=== PATIENT | female | born 1990 | race Caucasian/White ===

== ENCOUNTER 2016-10-18 21:55 | Emergency (ER) | payer OTHER ==
--- NOTE | 2016-10-19 02:03 | ED ORDER SUMMARY ---
..... Patient: ARTHUR LAWRENCE OrderSheet [facility] VisitID: [id number] [address] [place] [address] 26y, F Registration Date/Time: 10/18/2016 ORDER SHEET Weight: 57.1 kg (stated) Allergies: Wellbutrin, Percocet, Hydrocodone GENERAL ORDERS: US Pelvic Complete w Transvag Urgent (23:37 10/18/2016 Jane Richard) (Ack 23:40 [facility] Collections Professional) (Cancelled: Other23:59 [facility] Professional) US OB 1st Trimester w Transvag (CHART) Urgent (23:59 10/18/2016 [facility] Professional written order Jane Richard) (Ack 0:01 [facility] Professional) (0:49 GUnger) CBC w Diff Urgent (00:17 10/19/2016 Jane Richard) (Ack 0:29 [facility]) (0:57 JQuivey R.N.) CMP Urgent (00:17 10/19/2016 Jane Richard) (Ack 0:29 [facility] Professional) (0:57 JQuivey R.N.) UA-Culture if indicated Urgent (00:17 10/19/2016 Jane Richard) (Ack 0:29 [facility] Professional) (0:57 JQuivey R.N.) Serum Quantitative Urgent (00:17 10/19/2016 Jane Richard) (Ack 0:29 [facility] Professional) (0:57 JQuivey R.N.) MEDICATION ORDERS: Phenergan IV 25 mg (HIGH ALERT MEDICATION, NOW) (00:17 10/19/2016 Jane Richard) (Ack 0:26 JQuivey R.N.) (0:58 JQuivey R.N.) Keflex PO 500 mg (NOW) (01:56 10/19/2016 Jane Richard) (Ack 2:06 JQuivey R.N.) (2:15 CFalkner R.N.) IV FLUIDS: IV NS : initial bolus none -, then 1000 mL/hr (NOW) (23:25 10/18/2016 JQuivey R.N. per protocol) (23:26 JQuivey R.N.) IV NS : initial bolus 1000 mL (1000 mL/hr), then none - for X1 (NOW) (00:17 10/19/2016 Jane Richard) (Ack 0:26 JQuivey R.N.) (0:58 JQuivey R.N.) Benadryl IV 25 mg (NOW) (01:42 10/19/2016 Jane Richard) (Ack 1:43 JQuivey R.N.) (1:45 JQuivey R.N.) ORDER SHEET NOTES: [Electronically signed by Talha Kruger R.N. (02:52 10/19/2016)] [Electronically signed by Jim Abdalla Dr. (12:17 10/22/2016)] [Electronically locked/signed by Talha Kruger R.N. (02:52 10/19/2016)]
--- NOTE | 2016-10-19 02:03 | ED CLINICAL REPORT ---
Clinical Report - Physicians/Mid Levels [facility] [address] [place] [address] 10/18/2016 21:56 Patient: ARTHUR LAWRENCE Arrived- By private vehicle. Historian- patient. HISTORY OF PRESENT ILLNESS Chief Complaint: VOMITING. This started yesterday and is still present. It was abrupt in onset and has been constant but is not gone now. The patient has had nausea and vomiting. No diarrhea, black stools, bloody stools or abdominal pain. The illness is described as moderate. Similar symptoms previously: None. Recent medical care: Not recently seen/assessed. REVIEW OF SYSTEMS No fever, headache, chest pain, difficulty breathing or skin rash. All systems otherwise negative, except as recorded above. PAST HISTORY See nurses notes. SOCIAL HISTORY Former smoker. No alcohol use or drug use. Is a local resident. ADDITIONAL NOTES The nursing notes have been reviewed. PHYSICAL EXAM Vital Signs: 10/18/2016 22:53 BP: 116/75. HR: 82. RR: 16. O2 saturation: 99%. Temp: 97.6 F. Pain level now: 0/10. Blood pressure normal. Oxygen saturation normal. Appearance: Alert. Oriented X3. No acute distress. Eyes: Pupils equal, round and reactive to light. Eyes normal inspection. CVS: Normal heart rate and rhythm. Heart sounds normal. Pulses normal. Respiratory: No respiratory distress. Breath sounds normal. No rales, rhonchi or wheezes. Abdomen: Soft and nontender. Bowel sounds normal. No mass. (Negative Smith's. No tenderness at McBurney's. No rebound or guarding. Unable to palpate fundus). Skin: Skin warm and dry. Normal skin color. No rash. Normal skin turgor. Extremities: Extremities exhibit normal ROM. No lower extremity edema. LABS, X-RAYS, AND EKG Pelvic Sonogram: No free fluid. IUP with 6 weeks and 3 days. Study type: bedside transvaginal evaluation. The study was independently viewed by me and interpreted contemporaneously by me. Prior studies were not available for comparison. Laboratory Tests: UA-Culture if indicated: (OCHOA: 10/19/2016 01:00) ( Mscvd 10/19/2016 01:14) Final results Test Result Flag Units (Reference) URINE COLOR YELLOW URINE APPEARANCE CLEAR URINE GLUCOSE NEGATIVE (NEGATIVE) URINE BILIRUBIN NEGATIVE (NEGATIVE) URINE KETONE 3+ (NEGATIVE) URINE SPECIFIC GRAVITY >= 1.030 (1.010-1.030) URINE PH 6.0 (5.0-8.0) URINE PROTEIN 1+ (NEGATIVE) URINE UROBILINOGEN 0.2 EU/dL (0.2-1.0) URINE NITRITE NEGATIVE (NEGATIVE) URINE BLOOD TRACE-LYSED (NEGATIVE) URINE LEUK ESTERASE NEGATIVE (NEGATIVE) URINE RBC 0-1 rbc/hpf (0-1) URINE WBC 0-1 wbc/hpf (0-1) URINE EPITHELIAL CELLS 1-3 EPI/hpf (0-5) URINE BACTERIA MANY (4+) (NONE SEEN) URINE COMMENT CULTURE INDICATED URINE CULTURES ARE SET-UP BASED ON THE FOLLOWING CRITERIA:POSITIVE NITRITEPOSITIVE LEUKOCYTE ESTERASEGREATER THAN 10 WHITE BLOOD CELLSMODERATE (2+) OR GREATER BACTERIA CBC w Diff: (OCHOA: 10/19/2016 00:01) ( [facility] 10/19/2016 00:27) Final results Test Result Flag Units (Reference) WHITE BLOOD COUNT 9.0 K/uL (4.5-11.5) RED BLOOD COUNT 4.43 M/uL (4.00-5.20) HEMOGLOBIN 13.1 gm/dL (12.0-16.0) HEMATOCRIT 38.6 % (36.0-46.0) MEAN CELL VOLUME 87 fL (80-100) MEAN CORPUSCULAR HGB 30 pg (26-34) MEAN CORPUSCULAR HGB CONC 34 g/dL (31-37) RED CELL DISTRIBUTION WIDTH 12.8 % (11.6-14.8) PLATELET COUNT 228 K/uL (150-400) NEUTROPHIL % 79.3 H % (50-75) LYMPH % 15.9 L % (25-40) MONO % 4.1 % (3-14) EOSINOPHIL % 0.1 % (0-4) BASOPHIL % 0.6 % (0-2) CMP: (OCHOA: 10/19/2016 00:01) ( MsgRcvd 10/19/2016 00:55) Final results Test Result Flag Units (Reference) GLUCOSE 128 H mg/dL (70-110) BUN 11 mg/dL (7-18) CREATININE 0.8 mg/dL (0.6-1.3) Estimated GFR >60 mL/min Estimated GFR- >60 mL/min Note: Persistent reduction over 3 months in eGFR<60 mL/min/1.73 m2 defines CKD. Patients with eGFR values>=60 mL/min/1.73 m2 may also have CKD if evidence ofpersistent proteinuria. Additional information may be foundat www.kidney.org. SODIUM 138 mmol/L (136-145) POTASSIUM 3.7 mmol/L (3.5-5.1) CHLORIDE 103 mmol/L (98-107) CARBON DIOXIDE 21 mmol/L (21-32) CALCIUM 9.0 mg/dL (8.5-10.1) TOTAL PROTEIN 7.8 g/dL (6.4-8.2) ALBUMIN 4.5 g/dL (3.3-5.0) BILIRUBIN, TOTAL 1.0 mg/dL (0.0-1.0) ALKALINE PHOSPHATASE 41 L U/L (46-116) AST (SGOT) 13 L U/L (15-37) ALT (SGPT) 21 U/L (12-78) BETA HCG, QUANTITATIVE 71027 mIU/mL REFERENCE RANGE:Adult Males: <2 mIU/mLNon- Females: <6 mIU/mL Females:Approximate Approximate hCGGestational Age Range (mIU/mL) 0-1 week 0-501-2 weeks 40-3002-3 weeks 100-97249-0 weeks 500-23929-4 months 5,000-200,0002-3 months 10,000-100,0002nd trimester 3,000-50,0003rd trimester 1,000-50,000 Culture, Urine: (OCHOA: 10/19/2016 01:00) ( MsgRcvd 10/21/2016 10:59) Final results Test Result Flag Units (Reference) CULTURE, URINE DATE: 10/21/16 NO SIGNIFICANT ISOLATION: NO SIGNIFICANT ISOLATION PRELIM REPORT: FINAL REPORT . PROGRESS AND PROCEDURES Course of Care: the patient is a pleasant 26 year-old female presented for evaluation of nausea vomiting. At this time differential diagnosis includes hyperemesis gravidarum, urinary tract infection, gastroenteritis. Abdominal exam is nontender Did not the patient is surgical abdomen. Patient has not been evaluated with ultrasound at this point. We will perform ultrasound here to verify intrauterine as patient reports that she had had a home test that was positive. Patient is agreeable to the treatment and plan. workup does not show any acute abnormalities with patient's electrolytes or liver enzymes. Ultrasound results show patient with intrauterine . Had discussion with patient in regards nausea medication. Because of the concern at this point with Zofran that has not been proven with evidence,I discussion with patient and she would like to avoid this medication at this time. Patient is agreeable to other types of nausea medication. Patient reports feeling better after medication was provided here in the emergency department. No bleeding noted onpatient's history Per current guidelines, pelvic examination is not indicated. vital signs here in the emergency Department are unremarkable. Patient is nontoxic. Symptoms improved. Did not fill patient is to be admitted to the hospital require further emergency department evaluation. Patient to follow up with her primary care doctor and ANIMATOR forher current . I discussed the patient workup, diagnosis, home care, follow-up, and return precautions. All questions answered. The patient expressed understanding of these instructions and was agreeable to them. CLINICAL IMPRESSION 10/18/2016 22:53 BP: 116/75. HR: 82. RR: 16. O2 saturation: 99%. Temp: 97.6 F. Pain level now: 0/10. Blood pressure normal. Oxygen saturation normal. First trimester ; positive test in emergency department. Acute urinary tract infection with cystitis and hematuria. Mild hyperemesis gravidarum less than 21 weeks with dehydration (acute). INSTRUCTIONS Warnings: GENERAL WARNINGS: Return or contact your physician immediately if your condition worsens or changes unexpectedly, if not improving as expected, or if other problems arise. SPECIFICALLY, return if you develop pain, fever, vomiting, the inability to keep fluids down, blood in vomitus, blood in diarrhea, fainting, lightheadedness or vaginal bleeding. Your Current Medications: CONTINUE TAKING THE FOLLOWING MEDICATIONS: 1 Oral : Capsule 30-0.975-200 mg, 1 capsule qday. Zofran ODT Oral : 8mg, prn. Prescription Medications: Keflex 500 mg: take 1 capsule orally every 8 hours for 5 days. No refill. Substitution is permissible. (disp 15 caps) vitamins NatalCare Plus: Take 1 orally every day. Dispense thirty (30). No refils. Substitution is permissible. Diclegis (10mg/10mg) take on tab PO at night PRN nausea/vomiting. Disp 30 tabs. Substitution is allowed. Follow-up: Return to the emergency department as needed. Follow up with your doctor in three days. Reason for referral: recheck today's concerns. Summary of care provided to patient via paper. 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 Reason for referral: recheck today's concerns. Summary of care provided to patient via paper. Screening today revealed the patient's blood pressure to be in the normal range. The patient should follow up with a primary care provider for blood pressure management. Understanding of the discharge instructions verbalized by patient. (Electronically signed by Jim Abdalla Dr. 10/22/2016 12:17)
--- NOTE | 2016-10-19 02:03 | ED CLINICAL REPORT ---
Clinical Report - Physicians/Mid Levels [facility] [address] [place] [address] 10/18/2016 21:56 Patient: ARTHUR LAWRENCE Arrived- By private vehicle. Historian- patient. HISTORY OF PRESENT ILLNESS Chief Complaint: VOMITING. This started yesterday and is still present. It was abrupt in onset and has been constant but is not gone now. The patient has had nausea and vomiting. No diarrhea, black stools, bloody stools or abdominal pain. The illness is described as moderate. Similar symptoms previously: None. Recent medical care: Not recently seen/assessed. REVIEW OF SYSTEMS No fever, headache, chest pain, difficulty breathing or skin rash. All systems otherwise negative, except as recorded above. PAST HISTORY See nurses notes. SOCIAL HISTORY Former smoker. No alcohol use or drug use. Is a local resident. ADDITIONAL NOTES The nursing notes have been reviewed. PHYSICAL EXAM Vital Signs: 10/18/2016 22:53 BP: 116/75. HR: 82. RR: 16. O2 saturation: 99%. Temp: 97.6 F. Pain level now: 0/10. Blood pressure normal. Oxygen saturation normal. Appearance: Alert. Oriented X3. No acute distress. Eyes: Pupils equal, round and reactive to light. Eyes normal inspection. CVS: Normal heart rate and rhythm. Heart sounds normal. Pulses normal. Respiratory: No respiratory distress. Breath sounds normal. No rales, rhonchi or wheezes. Abdomen: Soft and nontender. Bowel sounds normal. No mass. (Negative Smith's. No tenderness at McBurney's. No rebound or guarding. Unable to palpate fundus). Skin: Skin warm and dry. Normal skin color. No rash. Normal skin turgor. Extremities: Extremities exhibit normal ROM. No lower extremity edema. LABS, X-RAYS, AND EKG Pelvic Sonogram: No free fluid. IUP with 6 weeks and 3 days. Study type: bedside transvaginal evaluation. The study was independently viewed by me and interpreted contemporaneously by me. Prior studies were not available for comparison. Laboratory Tests: UA-Culture if indicated: (OCHOA: 10/19/2016 01:00) ( Mscvd 10/19/2016 01:14) Final results Test Result Flag Units (Reference) URINE COLOR YELLOW URINE APPEARANCE CLEAR URINE GLUCOSE NEGATIVE (NEGATIVE) URINE BILIRUBIN NEGATIVE (NEGATIVE) URINE KETONE 3+ (NEGATIVE) URINE SPECIFIC GRAVITY >= 1.030 (1.010-1.030) URINE PH 6.0 (5.0-8.0) URINE PROTEIN 1+ (NEGATIVE) URINE UROBILINOGEN 0.2 EU/dL (0.2-1.0) URINE NITRITE NEGATIVE (NEGATIVE) URINE BLOOD TRACE-LYSED (NEGATIVE) URINE LEUK ESTERASE NEGATIVE (NEGATIVE) URINE RBC 0-1 rbc/hpf (0-1) URINE WBC 0-1 wbc/hpf (0-1) URINE EPITHELIAL CELLS 1-3 EPI/hpf (0-5) URINE BACTERIA MANY (4+) (NONE SEEN) URINE COMMENT CULTURE INDICATED URINE CULTURES ARE SET-UP BASED ON THE FOLLOWING CRITERIA:POSITIVE NITRITEPOSITIVE LEUKOCYTE ESTERASEGREATER THAN 10 WHITE BLOOD CELLSMODERATE (2+) OR GREATER BACTERIA CBC w Diff: (OCHOA: 10/19/2016 00:01) ( [facility] 10/19/2016 00:27) Final results Test Result Flag Units (Reference) WHITE BLOOD COUNT 9.0 K/uL (4.5-11.5) RED BLOOD COUNT 4.43 M/uL (4.00-5.20) HEMOGLOBIN 13.1 gm/dL (12.0-16.0) HEMATOCRIT 38.6 % (36.0-46.0) MEAN CELL VOLUME 87 fL (80-100) MEAN CORPUSCULAR HGB 30 pg (26-34) MEAN CORPUSCULAR HGB CONC 34 g/dL (31-37) RED CELL DISTRIBUTION WIDTH 12.8 % (11.6-14.8) PLATELET COUNT 228 K/uL (150-400) NEUTROPHIL % 79.3 H % (50-75) LYMPH % 15.9 L % (25-40) MONO % 4.1 % (3-14) EOSINOPHIL % 0.1 % (0-4) BASOPHIL % 0.6 % (0-2) CMP: (OCHOA: 10/19/2016 00:01) ( MsgRcvd 10/19/2016 00:55) Final results Test Result Flag Units (Reference) GLUCOSE 128 H mg/dL (70-110) BUN 11 mg/dL (7-18) CREATININE 0.8 mg/dL (0.6-1.3) Estimated GFR >60 mL/min Estimated GFR- >60 mL/min Note: Persistent reduction over 3 months in eGFR<60 mL/min/1.73 m2 defines CKD. Patients with eGFR values>=60 mL/min/1.73 m2 may also have CKD if evidence ofpersistent proteinuria. Additional information may be foundat www.kidney.org. SODIUM 138 mmol/L (136-145) POTASSIUM 3.7 mmol/L (3.5-5.1) CHLORIDE 103 mmol/L (98-107) CARBON DIOXIDE 21 mmol/L (21-32) CALCIUM 9.0 mg/dL (8.5-10.1) TOTAL PROTEIN 7.8 g/dL (6.4-8.2) ALBUMIN 4.5 g/dL (3.3-5.0) BILIRUBIN, TOTAL 1.0 mg/dL (0.0-1.0) ALKALINE PHOSPHATASE 41 L U/L (46-116) AST (SGOT) 13 L U/L (15-37) ALT (SGPT) 21 U/L (12-78) BETA HCG, QUANTITATIVE 19497 mIU/mL REFERENCE RANGE:Adult Males: <2 mIU/mLNon- Females: <6 mIU/mL Females:Approximate Approximate hCGGestational Age Range (mIU/mL) 0-1 week 0-501-2 weeks 40-3002-3 weeks 100-76013-3 weeks 500-33045-9 months 5,000-200,0002-3 months 10,000-100,0002nd trimester 3,000-50,0003rd trimester 1,000-50,000 Culture, Urine: (OCHOA: 10/19/2016 01:00) ( MsgRcvd 10/21/2016 10:59) Final results Test Result Flag Units (Reference) CULTURE, URINE DATE: 10/21/16 NO SIGNIFICANT ISOLATION: NO SIGNIFICANT ISOLATION PRELIM REPORT: FINAL REPORT . PROGRESS AND PROCEDURES Course of Care: the patient is a pleasant 26 year-old female presented for evaluation of nausea vomiting. At this time differential diagnosis includes hyperemesis gravidarum, urinary tract infection, gastroenteritis. Abdominal exam is nontender Did not the patient is surgical abdomen. Patient has not been evaluated with ultrasound at this point. We will perform ultrasound here to verify intrauterine as patient reports that she had had a home test that was positive. Patient is agreeable to the treatment and plan. workup does not show any acute abnormalities with patient's electrolytes or liver enzymes. Ultrasound results show patient with intrauterine . Had discussion with patient in regards nausea medication. Because of the concern at this point with Zofran that has not been proven with evidence,I discussion with patient and she would like to avoid this medication at this time. Patient is agreeable to other types of nausea medication. Patient reports feeling better after medication was provided here in the emergency department. No bleeding noted onpatient's history Per current guidelines, pelvic examination is not indicated. vital signs here in the emergency Department are unremarkable. Patient is nontoxic. Symptoms improved. Did not fill patient is to be admitted to the hospital require further emergency department evaluation. 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 I discussed the patient workup, diagnosis, home care, follow-up, and return precautions. All questions answered. The patient expressed understanding of these instructions and was agreeable to them. CLINICAL IMPRESSION 10/18/2016 22:53 BP: 116/75. HR: 82. RR: 16. O2 saturation: 99%. Temp: 97.6 F. Pain level now: 0/10. Blood pressure normal. Oxygen saturation normal. First trimester ; positive test in emergency department. Acute urinary tract infection with cystitis and hematuria. Mild hyperemesis gravidarum less than 21 weeks with dehydration (acute). INSTRUCTIONS Warnings: GENERAL WARNINGS: Return or contact your physician immediately if your condition worsens or changes unexpectedly, if not improving as expected, or if other problems arise. SPECIFICALLY, return if you develop pain, fever, vomiting, the inability to keep fluids down, blood in vomitus, blood in diarrhea, fainting, lightheadedness or vaginal bleeding. Your Current Medications: CONTINUE TAKING THE FOLLOWING MEDICATIONS: 1 Oral : Capsule 30-0.975-200 mg, 1 capsule qday. Zofran ODT Oral : 8mg, prn. Prescription Medications: Keflex 500 mg: take 1 capsule orally every 8 hours for 5 days. No refill. Substitution is permissible. (disp 15 caps) vitamins NatalCare Plus: Take 1 orally every day. Dispense thirty (30). No refils. Substitution is permissible. Diclegis (10mg/10mg) take on tab PO at night PRN nausea/vomiting. Disp 30 tabs. Substitution is allowed. Follow-up: Return to the emergency department as needed. Follow up with your doctor in three days. Reason for referral: recheck today's concerns. Summary of care provided to patient via paper. Follow up with doctor Your manager strategy & account in three hours. Reason for referral: recheck today's concerns. Summary of care provided to patient via paper. Screening today revealed the patient's blood pressure to be in the normal range. The patient should follow up with a primary care provider for blood pressure management. Understanding of the discharge instructions verbalized by patient. (Electronically signed by Jim Abdalla Dr. 10/22/2016 12:17)
--- NOTE | 2016-10-19 02:03 | ED ORDER SUMMARY ---
..... Patient: ARTHUR LAWRENCE OrderSheet [facility] VisitID: [id number] [address] [place] [address] 26y, F Registration Date/Time: 10/18/2016 ORDER SHEET Weight: 57.1 kg (stated) Allergies: Wellbutrin, Percocet, Hydrocodone GENERAL ORDERS: US Pelvic Complete w Transvag Urgent (23:37 10/18/2016 Jane Richard) (Ack 23:40 [facility] Scroll Shear Operator) (Cancelled: Other23:59 [facility] Scroll Shear Operator) US OB 1st Trimester w Transvag (CHART) Urgent (23:59 10/18/2016 [facility] Shear Operator written order Jane Richard) (Ack 0:01 [facility] Scroll Shear Operator) (0:49 GUnger) CBC w Diff Urgent (00:17 10/19/2016 Jane Richard) (Ack 0:29 [facility] Shear Operator) (0:57 JQuivey R.N.) CMP Urgent (00:17 10/19/2016 Jane Richard) (Ack 0:29 [facility] Scroll Shear Operator) (0:57 JQuivey R.N.) UA-Culture if indicated Urgent (00:17 10/19/2016 Jane Richard) (Ack 0:29 [facility] Scroll Shear Operator) (0:57 JQuivey R.N.) Serum Quantitative Urgent (00:17 10/19/2016 Jane Richard) (Ack 0:29 [facility] Scroll Shear Operator) (0:57 JQuivey R.N.) MEDICATION ORDERS: Phenergan IV 25 mg (HIGH ALERT MEDICATION, NOW) (00:17 10/19/2016 Jane Richard) (Ack 0:26 JQuivey R.N.) (0:58 JQuivey R.N.) Keflex PO 500 mg (NOW) (01:56 10/19/2016 Jane Richard) (Ack 2:06 JQuivey R.N.) (2:15 CFalkner R.N.) IV FLUIDS: IV NS : initial bolus none -, then 1000 mL/hr (NOW) (23:25 10/18/2016 JQuivey R.N. per protocol) (23:26 JQuivey R.N.) IV NS : initial bolus 1000 mL (1000 mL/hr), then none - for X1 (NOW) (00:17 10/19/2016 Jane Richard) (Ack 0:26 JQuivey R.N.) (0:58 JQuivey R.N.) Benadryl IV 25 mg (NOW) (01:42 10/19/2016 Jane Richard) (Ack 1:43 JQuivey R.N.) (1:45 JQuivey R.N.) ORDER SHEET NOTES: [Electronically signed by Talha Kruger R.N. (02:52 10/19/2016)] [Electronically signed by Jim Abdalla Dr. (12:17 10/22/2016)] [Electronically locked/signed by Talha Kruger R.N. (02:52 10/19/2016)]
--- NOTE | 2016-10-19 02:03 | ED NURSING NOTES ---
Clinical Report - Nurses [facility] [address] [place] [address] 10/18/2016 21:56 [id number] TRI[facility] Triage time 22:53. Acuity: LEVEL 4. Chief Complaint: NAUSEA and VOMITING. 23:01. --23:01 Columba Lazar R.N. 22:53 10/18/16. BP: 116/75 taken on the left arm, while sitting. HR: 82 (regular and normal rate). RR: 16 (regular, unlabored and normal). O2 saturation: 99%. Temp: 97.6 F (oral). Pain level now: 0/10. --23:01 Columba Lazar R.N. Weight: 57.1 kg stated. Height/Length: 62 inches Per Patient. BMI: 23. --22:59 Columba Lazar R.N. Medications 1 Oral (Capsule 30-0.975-200 mg) 1 capsule, qday. --22:55 Columba Lazar R.N. Zofran ODT Oral 8mg , as needed. --23:08 Talha Kruger R.N. Allergies Wellbutrin. (heart palputations) --22:56 Columba Lazar R.N. Percocet. --22:56 Columba Lazar R.N. Hydrocodone. (nausea vomiting hives) --22:57 Columba Lazar R.N. History Arrived by private vehicle. Historian: patient. Accompanied by friend. Onset. (1 days ago). PAST MEDICAL HX: Currently : 6 weeks 2 days. SOCIAL HX: Former smoker, end date 2016. History of drug use: marijuana. No alcohol use. No recent travel. No known contact with a sick individual. FALL RISK ASSESSMENT: Fall risk assessment completed. No fall risk identified. NUTRITIONAL RISK ASSESSMENT: The nutritional risk assessment revealed no deficiencies. FUNCTIONAL ASSESSMENT: Functional assessment: no impairments noted. LEARNING NEEDS ASSESSMENT: The learning needs assessment revealed no barriers. SKIN INTEGRITY ASSESSMENT: Skin integrity risk assessment completed. No skin integrity risk identified. --23: Columba Lazar R.N. Interventions ID band on patient. --23: Columba Lazar R.N. PHYSICAL ASSESSMENT 23:09. Ambulatory to room. GENERAL / NEURO / PSYCH: Alert. Oriented X 4. HEENT: Mucous membranes are pink. RESPIRATORY: Respirations not labored. SKIN: Skin is warm and dry. --23:09 Talha Kruger R.N. NURSING PROGRESS NOTES 23:09. Head of bed elevated. Two patient identifiers checked. Call light placed in reach. Bed placed in lowest position. Brakes of bed on. Patient ready for evaluation- chart flagged. --23:09 Talha Kruger R.N. 23:20 10/18/2016 Site #1 started via IV in the right antecubital space with an 20g angiocath, with aseptic technique and good blood return; one attempt. Blood drawn: rainbow set. Labeled in the presence of the patient and sent to the lab. --23:26 Talha Kruger R.N. 23:21 10/18/2016 Started bag #1 1000 mL IV Fluids IV NS (Saline); at 1000 mL/hr over 1 hour(s) via site #1 --23:26 Talha Kruger R.N. 00:26 body technician/painter with pt for exam. --00:36 Talha Kruger R.N. 00:34 10/19/2016 IV Fluids IV NS Discontinued: bag #1 infused. Total amount infused: 1000 mL. IV patency established. IV site checked: no pain, redness, or swelling. IV flushed thoroughly. --00:57 Talha Kruger R.N. 00:52 10/19/2016 Started bag #2 1000 mL IV Fluids IV NS (Saline); at 1000 mL/hr over 1 hour(s) via site #1 --00:58 Talha Kruger R.N. 00:55 10/19/2016 PHENERGAN (Promethazine HCl) IVP 25 mg given over 2 minute(s) via site #1. Allergies verified and confirmed 5 rights. IV patency established. IV site checked: no pain, redness, or swelling. IV flushed thoroughly pre- and post-medication administration. --00:58 Talha Kruger R.N. 01:45 10/19/2016 Benadryl (DiphenhydrAMINE HCl) IVP 25 mg given over 2 minute(s) via site #1. Allergies verified, confirmed 5 rights and sedative warning given to the patient and patient's family. IV patency established. IV site checked: no pain, redness, or swelling. IV flushed thoroughly pre- and post-medication administration. --01:45 Talha Kruger R.N. 02:15 10/19/2016 Keflex (Cephalexin) PO 500 mg given. --02:15 Columba Lazar R.N. 02:25 10/19/2016 Site #1 removed upon discharge. Catheter intact. Manual pressure and bandage applied. --02:25 Columba Lazar R.N. DISPOSITION / DISCHARGE 02:21 02:22. Condition at departure: improved. The goals identified in the patient's plan of care were met. No learning barriers present. Discharge instructions provided and reviewed with the patient. Reviewed medication(s). Patient verbalized understanding. Written instructions provided in French. The patient was discharged home and accompanied by spouse. She left the Emergency Department ambulatory and via private vehicle. Spouse driving. FALL RISK ASSESSMENT: Fall risk assessment completed. No fall risk identified. --02:22 Columba Lazar R.N. 02:19 10/19/16. BP: 110/65 taken on the left arm, via an automated monitor, while sitting. HR: 80 (regular, normal rate and strong). RR: 16 (regular, unlabored and normal). O2 saturation: 96% on room air. Temp: 98.2 F (oral). Pain level now: 01/08. --02:22 Columba Lazar R.N. Departure time: :23. --02:23 Columba Lazar R.N. 02:27 10/19/2016 IV Fluids IV NS Discontinued: bag #2 infused. Total amount infused: 1000 mL. IV patency established. IV site checked: no pain, redness, or swelling. IV flushed thoroughly. --: Columba Lazar R.N. Locked/Released at 10/19/2016 2:52 by Talha Kruger R.N.
--- NOTE | 2016-10-19 09:07 | DIAGNOSTIC IMAGING REPORT ---
PROCEDURE: US OB 1ST TRIMESTER W/TRANSVAG INDICATION: PAIN TECHNIQUE: Soria scale, color, and spectral Doppler transabdominal and endovaginal sonographic images of the first trimester gravid uterus were obtained. COMPARISON: None. FINDINGS: TRANSABDOMINAL SCANS: Single intrauterine gestational sac with a yolk sac. Normal kidneys. TRANSVAGINAL SCANS: [place]-rump length 7.1 mm, 6 weeks 4 days. LINDEN 06/10/2017. Heart rate 114 bpm. There is a 1.4 x 1.2 x 0.7 cm perigestational hemorrhage. There is a right ovarian corpus luteum cyst. IMPRESSION: 1. Single live intrauterine 6 weeks 4 days 2. LINDEN 06/10/2017 3. Small subchorionic hemorrhage
--- NOTE | 2016-10-19 09:07 | DIAGNOSTIC IMAGING REPORT ---
PROCEDURE: US OB 1ST TRIMESTER W/TRANSVAG INDICATION: PAIN TECHNIQUE: Soria scale, color, and spectral Doppler transabdominal and endovaginal sonographic images of the first trimester gravid uterus were obtained. COMPARISON: None. FINDINGS: TRANSABDOMINAL SCANS: Single intrauterine gestational sac with a yolk sac. Normal kidneys. TRANSVAGINAL SCANS: [place]-rump length 7.1 mm, 6 weeks 4 days. LINDEN 06/10/2017. Heart rate 114 bpm. There is a 1.4 x 1.2 x 0.7 cm perigestational hemorrhage. There is a right ovarian corpus luteum cyst. IMPRESSION: 1. Single live intrauterine 6 weeks 4 days 2. LINDEN 06/10/2017 3. Small subchorionic hemorrhage
--- NOTE | 2016-10-22 12:18 | ED MAR SUMMARY ---
..... Medication Administration Record [facility] [address] [place] [address] Patient: ARTHUR LAWRENCE Visit ID: [id number] 26y, F Weight: 57.1 kg Height/Length: 62 in BMI: 23 ALLERGIES: Hydrocodone, Percocet, Wellbutrin Start 23:21 10/18/2016 Talha Kruger R.N., Stop 00:34 10/19/2016 Talha Kruger R.N. Medication Administered: IV NS (SALINE), Dose: IV Fluids over 1 hour(s), Rate: 1000 mL/hr, Dispensed: 1000 mL bag, Site: #1 right AC. Medication Ordered: IV NS : initial bolus none -, then 1000 mL/hr (NOW). Start 00:52 10/19/2016 Talha Kruger R.N., Stop 02:27 10/19/2016 Columba Lazar R.N. Medication Administered: IV NS (SALINE), Dose: IV Fluids over 1 hour(s), Rate: 1000 mL/hr, Dispensed: 1000 mL bag, Site: #1 right AC. Medication Ordered: IV NS : initial bolus 1000 mL (1000 mL/hr), then none - for X1 (NOW). Given 00:55 10/19/2016 Talha Kruger R.N. Medication Administered: PHENERGAN [IVP] (PROMETHAZINE HCL), Dose: 25 mg IVP over 2 minute(s), Site: #1 right AC. Medication Ordered: Phenergan IV 25 mg (HIGH ALERT MEDICATION, NOW). Given 01:45 10/19/2016 Talha Kruger R.N. Medication Administered: BENADRYL [IVP] (DIPHENHYDRAMINE HCL), Dose: 25 mg IVP over 2 minute(s), Site: #1 right AC. Medication Ordered: Benadryl IV 25 mg (NOW). Given 02:15 10/19/2016 Columba Lazar R.N. Medication Administered: KEFLEX [PO] (CEPHALEXIN), Dose: 500 mg PO. Medication Ordered: Keflex PO 500 mg (NOW).
--- NOTE | 2016-10-22 12:18 | ED MED RECONCILIATION SUMMARY ---
Patient: ARTHUR LAWRENCE Medication Reconciliation Report [facility] VisitID: [id number] [address] [place] [address] 26y, F Registration Date/Time: 10/18/2016 Weight: 57.1 kg Height/Length: 62 in. BMI: 23.0 ALLERGIES: Hydrocodone, Percocet, Wellbutrin The patient's Home Medications are listed below: CONTINUE TAKING THE FOLLOWING MEDICATIONS: 1 Oral (30-0.975-200 mg) 1 capsule, qday Zofran ODT Oral 8mg The source(s) of the original Home Medication information: Not obtained. The following Medications were given to the patient in the Emergency Department: IV NS IV Fluids bolus 0, then 1000 mL/hr, administered: 10/18/2016 11:21:00 PM IV NS IV Fluids bolus 0, then 1000 mL/hr, administered: 10/19/2016 12:52:00 AM PHENERGAN [IVP] IVP 25 mg, administered: 10/19/2016 12:55:00 AM Benadryl [IVP] IVP 25 mg, administered: 10/19/2016 1:45:00 AM Keflex [PO] PO 500 mg, administered: 10/19/2016 2:15:00 AM The following Medications were prescribed to the patient: Diclegis (10mg/10mg) take on tab PO at night PRN nausea/vomiting. Disp 30 tabs. Substitution is allowed. -- Jim Abdalla Dr. Keflex 500 mg: take 1 capsule orally every 8 hours for 5 days. No refill. Substitution is permissible.(disp 15 caps) -- Jim Abdalla Dr. vitamins NatalCare Plus: Take 1 orally every day. Dispense thirty (30). No refils. Substitution is permissible. -- Jim Abdalla Dr.
--- NOTE | 2016-10-22 12:18 | ED DISCHARGE INSTRUCTIONS ---
Patient: ARTHUR LAWRENCE General Instructions [facility] VisitID: [id number] [place] [address] 26y, F Registration Date/Time: 10/18/2016 10/18/2016 22:53 BP: 116/75. HR: 82. RR: 16. O2 saturation: 99%. Temp: 97.6 F. Pain level now: 0/10. Blood pressure normal. Oxygen saturation normal. First trimester ; positive test in emergency department. Acute urinary tract infection with cystitis and hematuria. Mild hyperemesis gravidarum less than 21 weeks with dehydration (acute). INSTRUCTIONS Warnings: GENERAL WARNINGS: Return or contact your physician immediately if your condition worsens or changes unexpectedly, if not improving as expected, or if other problems arise. SPECIFICALLY, return if you develop pain, fever, vomiting, the inability to keep fluids down, blood in vomitus, blood in diarrhea, fainting, lightheadedness or vaginal bleeding. Your Current Medications: CONTINUE TAKING THE FOLLOWING MEDICATIONS: 1 Oral : Capsule 30-0.975-200 mg, 1 capsule qday. Zofran ODT Oral : 8mg, prn. Prescription Medications: Keflex 500 mg: take 1 capsule orally every 8 hours for 5 days. No refill. Substitution is permissible. (disp 15 caps) vitamins NatalCare Plus: Take 1 orally every day. Dispense thirty (30). No refils. Substitution is permissible. Diclegis (10mg/10mg) take on tab PO at night PRN nausea/vomiting. Disp 30 tabs. Substitution is allowed. Follow-up: Return to the emergency department as needed. Follow up with your doctor in three days. Reason for referral: recheck today's concerns. Summary of care provided to patient via paper. Follow up with doctor Your container coordinator in three hours. Reason for referral: recheck today's concerns. Summary of care provided to patient via paper. Screening today revealed the patient's blood pressure to be in the normal range. The patient should follow up with a primary care provider for blood pressure management. Understanding of the discharge instructions verbalized by patient. ADDITIONAL INFORMATION Bladder Infection,Female (Adult) A bladder infection ("cystitis" or "UTI") usually causes a constant urge to urinate and a burning when passing urine. Urine may be cloudy, smelly or dark. There may be pain in the lower abdomen. A bladder infection occurs when bacteria from the vaginal area enter the bladder opening (urethra). This can occur from sexual intercourse, wearing tight clothing, dehydration and other factors. Home Care: Drink lots of fluids (at least 6-8 glasses a day, unless you must restrict fluids for other medical reasons). This will force the medicine into your urinary system and flush the bacteria out of your body. Avoid sexual intercourse until your symptoms are gone. Avoid caffeine, alcohol and spicy foods. These can irritate the bladder. A bladder infection is treated with antibiotics. You may also be given Pyridium (generic = phenazopyridine) to reduce the burning sensation. This medicine will cause your urine to become a bright orange color. The orange urine may stain clothing. You may wear a pad or panty-liner to protect clothing. Preventing Future Infections: Always wipe from front to back after a bowel movement. Keep the genital area clean and dry. Drink plenty of fluids each day to avoid dehydration. Both sexual partners should wash before intercourse. Urinate right after intercourse to flush out the bladder. Wear cotton underwear and cotton-lined panty hose; avoid tight-fitting pants. If you are on control pills and are having frequent bladder infections, discuss with your doctor. Follow Up: Return to this facility or see your doctor if ALL symptoms are not gone after three days of treatment. Get Prompt Medical Attention if any of the following occur: Fever of 100.4F (38C) or higher, or as directed by your healthcare provider No improvement by the third day of treatment Increasing back or abdominal pain Repeated vomiting; unable to keep medicine down Weakness, dizziness or fainting Vaginal discharge Pain, redness or swelling in the labia (outer vaginal area) Blood In The Urine Blood in the urine ("hematuria") has many possible causes. If it occurs after an injury (such as a car accident or fall), it is most often a sign of bruising to the kidney or bladder. Common medical causes of blood in the urine include urinary tract infection, kidney stone, inflammation, tumors, or certain other diseases of the kidney or bladder. Menstruation can cause blood to appear in the urine sample, although it is not coming from the urinary tract. If only a trace amount of blood is present, it will show up on the urine test, even though the urine may be yellow and not pink or red. This may occur with any of the above conditions, as well as heavy exercise or high fever. In this case, your doctor may want to repeat the urine test on another day. This will show if the blood is still present. If so, then other tests can be done to find out the cause. Home Care: If your urine does not appear bloody (pink, brown or red) then you do not need to restrict your activity in any way. If you can see blood in your urine, rest and avoid heavy exertion until your next exam. Do not use aspirin or anti-inflammatory medicine like ibuprofen (Motrin, Advil) or naproxen (Naprosyn, Aleve). These thin the blood and may increase bleeding. Follow Up with your doctor or as advised by our staff. If you were injured and had blood in your urine, you should have a repeat urine test in 1-2 days. Contact your doctor or return to this facility for this test. [NOTE: A radiologist will review any X-rays that were taken. We will notify you of any new findings that may affect your care.] Get Prompt Medical Attention if any of the following occur: Bright red blood or blood clots in the urine (if a new symptom) Weakness, dizziness or fainting New groin, abdominal or back pain Fever of 100.4F (38C) or higher, or as directed by your healthcare provider Repeated vomiting Bleeding from nose, gums or easy bruising Your exam today shows that you are . During , it is normal to develop tender swollen breasts, frequent urination and mild vaginal discharge. During the first three months, nausea is common. Guidelines For A Healthy : To ensure that your baby is born healthy there are certain things that you can do: When you feel tired, you should REST. This is especially true in the later months of . Your body needs more FLUIDS than you may be used to: You should drink 8-10 glasses of juice, milk or water. Eat well-balanced MEALS at regular intervals to supply your body with enough protein. You can expect a total weight gain of about 30 pounds during the . Do not try to diet or lose weight while you are . Because of the extra nutritional needs during , take one VITAMIN daily. Do not take any other MEDICINE during your (prescribed or [id number]) unless your doctor specifically recommends this. Many drugs can have harmful effects on the growing baby. If NAUSEA or VOMITING become a problem, avoid greasy and fried foods. Eat several smaller meals throughout the day rather than three large meals. If you SMOKE, you must stop. The nicotine you breathe in goes right to the baby. Stay away from ALCOHOL, even in moderate amounts. Daily drinking will harm your baby and can cause permanent brain damage. RECREATIONAL DRUGS are harmful, especially cocaine, crack, and heroin. Marijuana should also be avoided. If you were using recreational drugs or prescribed medicine when you found out that you were , talk to your doctor about possible effects on the fetus. Follow Up: Call to arrange for care. This can be provided by your family doctor, an patient case manager ( specialist) or a primary care clinic. Get Prompt Medical Attention if any of the following occur: Vaginal bleeding Moderate or severe abdominal or back pain Excessive vomiting, unable to keep any fluids down for six hours Burning with urination Headache, dizziness or rapid weight gain Hyperemesis Of Hyperemesis of is a severe form of "morning sickness", where the vomiting is excessive and may cause dehydration and chemical imbalances in the body. It occurs in about 1% of pregnancies, and is usually worse during the 10-12th week of . It gets better by the 16th week. Its cause is not well understood, but may be related to rising hormone levels early in the . It can be a serious threat to mother and fetus if dehydration becomes severe. Therefore, follow the advice below carefully. If symptoms are severe and not controlled by home measures, intravenous fluids and admission to the hospital may be needed. Home Care: 1) Activity a. After awakening from sleep, remain in bed for 15 minutes before getting up. 2) Diet a. Eat frequent small meals rather than 3 large meals. b. A diet high in carbohydrates (starches) and fiber is best. Avoid greasy or spicy foods. c. If you are having trouble keeping down solid foods, drink frequent, small amounts of liquids with electrolytes, such as broth or sports drinks. If nausea and vomiting continue, rest your stomach by waiting 1-2 hours before trying to drink again. d. Keep a log of the foods you eat and how they affect your symptoms. Avoid foods that trigger your symptoms. e. Keep Saltine crackers at the bedside. If you are nauseated upon awakening, eat some crackers or dry toast before getting out of bed. 3) Medicine a. In general, it is best to avoid strong medicines during , especially during the first three months. The effect on the growing baby is not always known and these could cause harm. Your doctor will recommend a prescription medicine only when the symptoms you are having (vomiting and dehydration) are more dangerous to the baby than the small risk of using the medicine. b. Taking Vitamin B6 (pyridoxine), 10-25 mg daily is safe and may be helpful to reduce nausea. c. Check with your doctor before taking any other [id number]-pid-[id number] or herbal medicines during your . Follow Up: With your doctor within the next few days or as instructed by this facility. Get Prompt Medical Attention if any of the following occur: -- Unable to keep any clear liquids down over a six-hour period -- Worsening weakness, dizziness or fainting occurs -- No weight gain over a two-week period -- Severe constant lower right abdominal pain -- Fever, chills or frequent diarrhea Cephalexin Monohydrate Oral tablet What is this medicine? CEPHALEXIN (sef a INDIRA in) is a cephalosporin antibiotic. It is used to treat certain kinds of bacterial infections It will not work for colds, flu, or other viral infections. How should I use this medicine? Take this medicine by mouth with a full glass of water. Follow the directions on the prescription label. This medicine can be taken with or without food. Take your medicine at regular intervals. Do not take your medicine more often than directed. Take all of your medicine as directed even if you think you are better. Do not skip doses or stop your medicine early. Talk to your telecom analyst regarding the use of this medicine in children. While this drug may be prescribed for selected conditions, precautions do apply. What side effects may I notice from receiving this medicine? Side effects that you should report to your doctor or health ambulatory care coordinator as soon as possible: allergic reactions like skin rash, itching or hives, swelling of the face, lips, or tongue breathing problems pain or trouble passing urine redness, blistering, peeling or loosening of the skin, including inside the mouth severe or watery diarrhea unusually weak or tired yellowing of the eyes, skin Side effects that usually do not require medical attention (report to your doctor or health ambulatory care coordinator if they continue or are bothersome): gas or heartburn genital or anal irritation headache joint or muscle pain nausea, vomiting What may interact with this medicine? probenecid some other antibiotics What if I miss a dose? If you miss a dose, take it as soon as you can. If it is almost time for your next dose, take only that dose. Do not take double or extra doses. There should be at least 4 to 6 hours between doses. Where should I keep my medicine? Keep out of the reach of children. Store at room temperature between 59 and 86 degrees F (15 and 30 degrees C). Throw away any unused medicine after the expiration date. What should I tell my health care provider before I take this medicine? They need to know if you have any of these conditions: kidney disease stomach or intestine problems, especially colitis an unusual or allergic reaction to cephalexin, other cephalosporins, penicillins, other antibiotics, medicines, foods, dyes or preservatives or trying to get breast-feeding What should I watch for while using this medicine? Tell your doctor or health ambulatory care coordinator if your symptoms do not begin to improve in a few days. Do not treat diarrhea with over the counter products. Contact your doctor if you have diarrhea that lasts more than 2 days or if it is severe and watery. If you have diabetes, you may get a false-positive result for sugar in your urine. Check with your doctor or health ambulatory care coordinator. You have been given the following additional information: Bladder Infection, Female (Adult) Hematuria , New Dx Hyperemesis Gravidarum Cephalexin Monohydrate Oral tablet (Electronically signed by Jim Abdalla Dr. 10/22/2016 12:17)
--- NOTE | 2016-10-22 12:18 | ED MED RECONCILIATION SUMMARY ---
Patient: ARTHUR LAWRENCE Medication Reconciliation Report [facility] VisitID: [id number] [address] [place] [address] 26y, F Registration Date/Time: 10/18/2016 Weight: 57.1 kg Height/Length: 62 in. BMI: 23.0 ALLERGIES: Hydrocodone, Percocet, Wellbutrin The patient's Home Medications are listed below: CONTINUE TAKING THE FOLLOWING MEDICATIONS: 1 Oral (30-0.975-200 mg) 1 capsule, qday Zofran ODT Oral 8mg The source(s) of the original Home Medication information: Not obtained. The following Medications were given to the patient in the Emergency Department: IV NS IV Fluids bolus 0, then 1000 mL/hr, administered: 10/18/2016 11:21:00 PM IV NS IV Fluids bolus 0, then 1000 mL/hr, administered: 10/19/2016 12:52:00 AM PHENERGAN [IVP] IVP 25 mg, administered: 10/19/2016 12:55:00 AM Benadryl [IVP] IVP 25 mg, administered: 10/19/2016 1:45:00 AM Keflex [PO] PO 500 mg, administered: 10/19/2016 2:15:00 AM The following Medications were prescribed to the patient: Diclegis (10mg/10mg) take on tab PO at night PRN nausea/vomiting. Disp 30 tabs. Substitution is allowed. -- Jim Abdalla Dr. Keflex 500 mg: take 1 capsule orally every 8 hours for 5 days. No refill. Substitution is permissible.(disp 15 caps) -- Jim Abdalla Dr. vitamins NatalCare Plus: Take 1 orally every day. Dispense thirty (30). No refils. Substitution is permissible. -- Jim Abdalla Dr.
--- NOTE | 2016-10-22 12:18 | ED MAR SUMMARY ---
..... Medication Administration Record [facility] [address] [place] [address] Patient: ARTHUR LAWRENCE Visit ID: [id number] 26y, F Weight: 57.1 kg Height/Length: 62 in BMI: 23 ALLERGIES: Hydrocodone, Percocet, Wellbutrin Start 23:21 10/18/2016 Talha Kruger R.N., Stop 00:34 10/19/2016 Talha Kruger R.N. Medication Administered: IV NS (SALINE), Dose: IV Fluids over 1 hour(s), Rate: 1000 mL/hr, Dispensed: 1000 mL bag, Site: #1 right AC. Medication Ordered: IV NS : initial bolus none -, then 1000 mL/hr (NOW). Start 00:52 10/19/2016 Talha Kruger R.N., Stop 02:27 10/19/2016 Columba Lazar R.N. Medication Administered: IV NS (SALINE), Dose: IV Fluids over 1 hour(s), Rate: 1000 mL/hr, Dispensed: 1000 mL bag, Site: #1 right AC. Medication Ordered: IV NS : initial bolus 1000 mL (1000 mL/hr), then none - for X1 (NOW). Given 00:55 10/19/2016 Talha Kruger R.N. Medication Administered: PHENERGAN [IVP] (PROMETHAZINE HCL), Dose: 25 mg IVP over 2 minute(s), Site: #1 right AC. Medication Ordered: Phenergan IV 25 mg (HIGH ALERT MEDICATION, NOW). Given 01:45 10/19/2016 Talha Kruger R.N. Medication Administered: BENADRYL [IVP] (DIPHENHYDRAMINE HCL), Dose: 25 mg IVP over 2 minute(s), Site: #1 right AC. Medication Ordered: Benadryl IV 25 mg (NOW). Given 02:15 10/19/2016 Columba Lazar R.N. Medication Administered: KEFLEX [PO] (CEPHALEXIN), Dose: 500 mg PO. Medication Ordered: Keflex PO 500 mg (NOW).
== END 2016-10-19 02:23 | disposition home or self-care (01) ==
LOC: ED SRH 21:55
DX: O23.11 Infections of bladder in pregnancy, first trimester (principal); N30.01 Acute cystitis with hematuria; O21.1 Hyperemesis gravidarum with metabolic disturbance; Z3A.01 Less than 8 weeks gestation of pregnancy; Z32.01 Encounter for pregnancy test, result positive
CPT/HCPCS: 90004; 90100; 90197; 90469; 95059

== ENCOUNTER 2016-10-24 13:52 | Emergency (ER) | payer OTHER ==
--- NOTE | 2016-10-24 16:23 | ED ORDER SUMMARY ---
..... Patient: ARTHUR LAWRENCE OrderSheet [facility] VisitID: [id number] [address] [place] [address] 26y, F Registration Date/Time: 10/24/2016 ORDER SHEET Weight: 57.6 kg (stated) Allergies: Vicodin, Percocet GENERAL ORDERS: MEDICATION ORDERS: Phenergan IV 12.5 mg (HIGH ALERT MEDICATION, NOW) (15:14 10/24/2016 Karma SHORE) (15:23 LSullivan R.N.) IV FLUIDS: IV NS with Normal Saline 1 Liter: initial bolus none -, then 1000 mL/hr for X1 (NOW) (15:12 10/24/2016 Andreasivan R.N. verbal order read back to Karma SHORE) (15:17 LSullivan R.N.) Benadryl IV 25 mg (NOW) (15:14 10/24/2016 Karma SHORE) (15:23 LSullivan R.N.) ORDER SHEET NOTES: [Electronically signed by Kandy Parsons R.N. (16:37 10/24/2016)] [Electronically signed by Lee Ann Blanco MD (08:11 10/28/2016)] [Electronically locked/signed by Kandy Parsons R.N. (16:37 10/24/2016)]
--- NOTE | 2016-10-24 16:23 | ED NURSING NOTES ---
Clinical Report - Nurses [facility] [address] [place] [address] 10/24/2016 13:52 Patient: ARTHUR LAWRENCE TRIAGE Triage time 14:53. Acuity: LEVEL 4. Chief Complaint: (vomiting, and intestinal cramping once in a while). Alert. --14:59 Kandy Parsons R.N. 14:53 10/24/16. BP: 118/68. HR: 79. RR: 18. O2 saturation: 100%. Temp: 98.5 F. Pain level now: 0/10. --14:59 Kandy Parsons R.N. Weight: 57.6 kg stated. Height/Length: 62 inches Per Patient. BMI: 23.2. --14:57 Kandy Parsons R.N. Medications "not taking the antibiotics for UTI". --14:56 Kandy Parsons R.N. Allergies Vicodin. --14:56 Kandy Parsons R.N. Percocet. --14:56 Kandy Parsons R.N. History Arrived by private vehicle. Historian: patient. Primary physician (Dr. West for OB). Onset. (about 6 AM this morning). 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 PAST MEDICAL HX: Last normal menstrual period- Sep 04. 3. Para 0. Currently . In 1st trimester. SOCIAL HX: Light tobacco smoker (cigarette)- less than 1/2 a pack per day. History of drug use: marijuana. No alcohol use. NUTRITIONAL RISK ASSESSMENT: The nutritional risk assessment revealed no deficiencies. FUNCTIONAL ASSESSMENT: Functional assessment: no impairments noted. --14:59 Kandy Parsons R.N. Interventions ID band on patient. To room. --14:59 Kandy Parsons R.N. PHYSICAL ASSESSMENT 14:59 10/24/16. GENERAL / NEURO / PSYCH: Alert. Oriented X 4. RESPIRATORY: Respirations not labored. --14:59 Kandy Parsons R.N. GI / : Emesis noted. (Pt states she is a "cyclical vomiter"). --15:34 Kandy Parsons R.N. NURSING PROGRESS NOTES 14:59 10/24/16. Patient identifiers checked. Call light placed in reach. Bed placed in lowest position. Patient ready for evaluation- chart flagged. --14:59 Kandy Parsons R.N. 15:13 10/24/2016 Site #1 started via IV in the right forearm with an 20g angiocath, with aseptic technique and good blood return; one attempt. Blood drawn: rainbow set. Labeled in the presence of the patient and sent to the lab. --15:13 Kandy Parsons R.N. 15:17 10/24/2016 Started bag #1 1000 mL IV Fluids IV NS (Saline); at 1000 mL/hr over 1 hour(s) via site #1 via IV pump. Confirmed 5 rights. --15:17 Kandy Parsons R.N. 15:18 10/24/2016 Benadryl (DiphenhydrAMINE HCl) IVP 25 mg given over 2 minute(s) via site #1. Confirmed 5 rights and sedative warning given. --15:23 Kandy Parsons R.N. 15:23 10/24/2016 PHENERGAN (Promethazine HCl) IVP 12.5 mg given over 2 minute(s) via site #1. Confirmed 5 rights. --15:23 Kandy Parsons R.N. 16:21 10/24/16. Overall patient status is improved- she states feels better. --16:21 Kandy Parsons R.N. 16:30 10/24/2016 IV Fluids IV NS Discontinued: bag #1 infused upon discharge. Total amount infused: 1000 mL. IV patency established. IV site checked: no pain, redness, or swelling. IV flushed thoroughly. --16:37 Kandy Parsons R.N. 16:31 10/24/2016 Site #1 removed upon discharge. Catheter intact. Bandage applied. --16:37 Kandy Parsons R.N. DISPOSITION / DISCHARGE Departure time: 1631. Condition at departure: improved. No learning barriers present. Discharge instructions provided and reviewed with the patient and spouse. Reviewed referral to an gas maker for followup. Verbalized understanding. Written instructions provided. The patient was discharged home and accompanied by spouse. She left the Emergency Department ambulatory and via private vehicle. Spouse driving. --16:36 Kandy Parsons R.N. 16:31 10/24/16. BP: 113/75. HR: 90. RR: 18. O2 saturation: 100%. Pain level now: 0/10. --16:36 Kandy Parsons R.N. Locked/Released at 10/24/2016 16:37 by Kandy Parsons R.N.
--- NOTE | 2016-10-24 16:23 | ED CLINICAL REPORT ---
Clinical Report - Physicians/Mid Levels [facility] [address] [place] [address] 10/24/2016 13:52 Patient: ARTHUR LAWRENCE Time Seen: 14:01. Arrived- By private vehicle. Historian- patient. HISTORY OF PRESENT ILLNESS Chief Complaint: VOMITING. This started today and is still present. No recent travel. She has had nausea and vomiting. No diarrhea, black stools, bloody stools, abdominal pain or constipation. No flank pain, history of possible bad food exposure or known contact with a sick individual. Has not recently been camping or on antibiotics. The illness is described as moderate. Similar symptoms previously: Occasionally. Recent medical care: The patient was seen recently at another facility. ( PT is , and has had an US confirming IUP.). REVIEW OF SYSTEMS No fever, muscle aches, difficulty with urination, dark urine or headache. No dizziness, sore throat, cough, chest pain or difficulty breathing. No excessive urination, skin rash, jaundice, back pain or fainting episodes. No blurred vision. Currently . All systems otherwise negative, except as recorded above. PAST HISTORY Problems: Bicornuate uterus. Dental Pain. Ectopic . Threatened . OB History. Substance Abuse. Hyperemesis Gravidarum. Anxiety Reaction. Immunizations. LNMP - Last Normal Menstrual Period. Depression. Additional Surgeries: no known surgeries. Medications: "not taking the antibiotics for UTI". Allergies: Percocet. Vicodin. SOCIAL HISTORY Smoker- current status unknown. History of drug use: marijuana. No alcohol use. ADDITIONAL NOTES The nursing notes have been reviewed. PHYSICAL EXAM Vital Signs: 10/24/2016 14:53 BP: 118/68. HR: 79. RR: 18. O2 saturation: 100%. Temp: 98.5 F. Pain level now: 0/10. Have been reviewed. Appearance: Alert. Oriented X3. No acute distress. Eyes: Pupils equal, round and reactive to light. Eyes normal inspection. ENT: Nose normal. Neck: Normal inspection. Neck supple. CVS: Normal heart rate and rhythm. Heart sounds normal. Pulses normal. Respiratory: No respiratory distress. Breath sounds normal. Abdomen: Soft and nontender. Back: Normal inspection. Skin: Skin warm and dry. Normal skin color. No rash. Normal skin turgor. Extremities: Extremities exhibit normal ROM. No lower extremity edema. Neuro: Oriented X 3. No motor deficit. No sensory deficit. LABS, X-RAYS, AND EKG Pulse Oximetry: 10/24/2016 14:53 O2 saturation: 100%. (FIO2 - room air). Interpretation: normal. PROGRESS AND PROCEDURES Course of Care: PT was given a liter of NS with Phenergan and Benadryl, after which she was found to be feeling better. Patient counseled in person regarding the patient's stable condition, diagnosis and need for follow-up. Concerns were addressed. Old medical records reviewed. Disposition: Discharged. Condition: stable and improved. CLINICAL IMPRESSION Vomiting with nausea. First trimester ; positive test in emergency department. INSTRUCTIONS Drink plenty of fluids. (Your urine culture was negative, therefore you do not need to take antibiotics.). Warnings: GENERAL WARNINGS: Return or contact your physician immediately if your condition worsens or changes unexpectedly, if not improving as expected, or if other problems arise. Your Current Medications: CONTINUE TAKING THE FOLLOWING MEDICATIONS: "not taking the antibiotics for UTI"*. Understanding of the discharge instructions verbalized by patient. Follow-up with: Rodney West MD, Obstetrics/Gynecology, , [facility], [address] [place] [address], [facility] Follow up. Call for the next available appointment. (Electronically signed by Lee Ann Blanco MD 10/28/2016 8:11)
--- NOTE | 2016-10-24 16:23 | ED ORDER SUMMARY ---
..... Patient: ARTHUR LAWRENCE OrderSheet [facility] VisitID: [id number] [address] [place] [address] 26y, F Registration Date/Time: 10/24/2016 ORDER SHEET Weight: 57.6 kg (stated) Allergies: Vicodin, Percocet GENERAL ORDERS: MEDICATION ORDERS: Phenergan IV 12.5 mg (HIGH ALERT MEDICATION, NOW) (15:14 10/24/2016 Karma SHORE) (15:23 LSullivan R.N.) IV FLUIDS: IV NS with Normal Saline 1 Liter: initial bolus none -, then 1000 mL/hr for X1 (NOW) (15:12 10/24/2016 Andreasivan R.N. verbal order read back to Karma SHORE) (15:17 LSullivan R.N.) Benadryl IV 25 mg (NOW) (15:14 10/24/2016 Karma SHORE) (15:23 LSullivan R.N.) ORDER SHEET NOTES: [Electronically signed by Kandy Parsons R.N. (16:37 10/24/2016)] [Electronically signed by Lee Ann Blanco MD (08:11 10/28/2016)] [Electronically locked/signed by Kandy Parsons R.N. (16:37 10/24/2016)]
--- NOTE | 2016-10-24 16:23 | ED NURSING NOTES ---
Clinical Report - Nurses [facility] [address] [place] [address] 10/24/2016 13:52 Patient: ARTHUR LAWRENCE TRIAGE Triage time 14:53. Acuity: LEVEL 4. Chief Complaint: (vomiting, and intestinal cramping once in a while). Alert. --14:59 Kandy Parsons R.N. 14:53 10/24/16. BP: 118/68. HR: 79. RR: 18. O2 saturation: 100%. Temp: 98.5 F. Pain level now: 0/10. --14:59 Kandy Parsons R.N. Weight: 57.6 kg stated. Height/Length: 62 inches Per Patient. BMI: 23.2. --14:57 Kandy Parsons R.N. Medications "not taking the antibiotics for UTI". --14:56 Kandy Parsons R.N. Allergies Vicodin. --14:56 Kandy Parsons R.N. Percocet. --14:56 Kandy Parsons R.N. History Arrived by private vehicle. Historian: patient. Primary physician (Dr. West for OB). Onset. (about 6 AM this morning). 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 PAST MEDICAL HX: Last normal menstrual period- Sep 04. 3. Para 0. Currently . In 1st trimester. SOCIAL HX: Light tobacco smoker (cigarette)- less than 1/2 a pack per day. History of drug use: marijuana. No alcohol use. NUTRITIONAL RISK ASSESSMENT: The nutritional risk assessment revealed no deficiencies. FUNCTIONAL ASSESSMENT: Functional assessment: no impairments noted. --14:59 Kandy Parsons R.N. Interventions ID band on patient. To room. --14:59 Kandy Parsons R.N. PHYSICAL ASSESSMENT 14:59 10/24/16. GENERAL / NEURO / PSYCH: Alert. Oriented X 4. RESPIRATORY: Respirations not labored. --14:59 Kandy Parsons R.N. GI / : Emesis noted. (Pt states she is a "cyclical vomiter"). --15:34 Kandy Parsons R.N. NURSING PROGRESS NOTES 14:59 10/24/16. Patient identifiers checked. Call light placed in reach. Bed placed in lowest position. Patient ready for evaluation- chart flagged. --14:59 Kandy Parsons R.N. 15:13 10/24/2016 Site #1 started via IV in the right forearm with an 20g angiocath, with aseptic technique and good blood return; one attempt. Blood drawn: rainbow set. Labeled in the presence of the patient and sent to the lab. --15:13 Kandy Parsons R.N. 15:17 10/24/2016 Started bag #1 1000 mL IV Fluids IV NS (Saline); at 1000 mL/hr over 1 hour(s) via site #1 via IV pump. Confirmed 5 rights. --15:17 Kandy Parsons R.N. 15:18 10/24/2016 Benadryl (DiphenhydrAMINE HCl) IVP 25 mg given over 2 minute(s) via site #1. Confirmed 5 rights and sedative warning given. --15:23 Kandy Parsons R.N. 15:23 10/24/2016 PHENERGAN (Promethazine HCl) IVP 12.5 mg given over 2 minute(s) via site #1. Confirmed 5 rights. --15:23 Kandy Parsons R.N. 16:21 10/24/16. Overall patient status is improved- she states feels better. --16:21 Kandy Parsons R.N. 16:30 10/24/2016 IV Fluids IV NS Discontinued: bag #1 infused upon discharge. Total amount infused: 1000 mL. IV patency established. IV site checked: no pain, redness, or swelling. IV flushed thoroughly. --16:37 Kandy Parsons R.N. 16:31 10/24/2016 Site #1 removed upon discharge. Catheter intact. Bandage applied. --16:37 Kandy Parsons R.N. DISPOSITION / DISCHARGE Departure time: 1631. Condition at departure: improved. No learning barriers present. Discharge instructions provided and reviewed with the patient and spouse. Reviewed referral to an import/export analyst for followup. Verbalized understanding. Written instructions provided. The patient was discharged home and accompanied by spouse. She left the Emergency Department ambulatory and via private vehicle. Spouse driving. --16:36 Kandy Parsons R.N. 16:31 10/24/16. BP: 113/75. HR: 90. RR: 18. O2 saturation: 100%. Pain level now: 0/10. --16:36 Kandy Parsons R.N. Locked/Released at 10/24/2016 16:37 by Kandy Parsons R.N.
--- NOTE | 2016-10-24 16:23 | ED CLINICAL REPORT ---
Clinical Report - Physicians/Mid Levels [facility] [address] [place] [address] 10/24/2016 13:52 Patient: ARTHUR LAWRENCE Time Seen: 14:01. Arrived- By private vehicle. Historian- patient. HISTORY OF PRESENT ILLNESS Chief Complaint: VOMITING. This started today and is still present. No recent travel. She has had nausea and vomiting. No diarrhea, black stools, bloody stools, abdominal pain or constipation. No flank pain, history of possible bad food exposure or known contact with a sick individual. Has not recently been camping or on antibiotics. The illness is described as moderate. Similar symptoms previously: Occasionally. Recent medical care: The patient was seen recently at another facility. ( PT is , and has had an US confirming IUP.). REVIEW OF SYSTEMS No fever, muscle aches, difficulty with urination, dark urine or headache. No dizziness, sore throat, cough, chest pain or difficulty breathing. No excessive urination, skin rash, jaundice, back pain or fainting episodes. No blurred vision. Currently . All systems otherwise negative, except as recorded above. PAST HISTORY Problems: Bicornuate uterus. Dental Pain. Ectopic . Threatened . OB History. Substance Abuse. Hyperemesis Gravidarum. Anxiety Reaction. Immunizations. LNMP - Last Normal Menstrual Period. Depression. Additional Surgeries: no known surgeries. Medications: "not taking the antibiotics for UTI". Allergies: Percocet. Vicodin. SOCIAL HISTORY Smoker- current status unknown. History of drug use: marijuana. No alcohol use. ADDITIONAL NOTES The nursing notes have been reviewed. PHYSICAL EXAM Vital Signs: 10/24/2016 14:53 BP: 118/68. HR: 79. RR: 18. O2 saturation: 100%. Temp: 98.5 F. Pain level now: 0/10. Have been reviewed. Appearance: Alert. Oriented X3. No acute distress. Eyes: Pupils equal, round and reactive to light. Eyes normal inspection. ENT: Nose normal. Neck: Normal inspection. Neck supple. CVS: Normal heart rate and rhythm. Heart sounds normal. Pulses normal. Respiratory: No respiratory distress. Breath sounds normal. Abdomen: Soft and nontender. Back: Normal inspection. Skin: Skin warm and dry. Normal skin color. No rash. Normal skin turgor. Extremities: Extremities exhibit normal ROM. No lower extremity edema. Neuro: Oriented X 3. No motor deficit. No sensory deficit. LABS, X-RAYS, AND EKG Pulse Oximetry: 10/24/2016 14:53 O2 saturation: 100%. (FIO2 - room air). Interpretation: normal. PROGRESS AND PROCEDURES Course of Care: PT was given a liter of NS with Phenergan and Benadryl, after which she was found to be feeling better. Patient counseled in person regarding the patient's stable condition, diagnosis and need for follow-up. Concerns were addressed. Old medical records reviewed. Disposition: Discharged. Condition: stable and improved. CLINICAL IMPRESSION Vomiting with nausea. First trimester ; positive test in emergency department. INSTRUCTIONS Drink plenty of fluids. (Your urine culture was negative, therefore you do not need to take antibiotics.). Warnings: GENERAL WARNINGS: Return or contact your physician immediately if your condition worsens or changes unexpectedly, if not improving as expected, or if other problems arise. Your Current Medications: CONTINUE TAKING THE FOLLOWING MEDICATIONS: "not taking the antibiotics for UTI"*. Understanding of the discharge instructions verbalized by patient. Follow-up with: Rodney West MD, Obstetrics/Gynecology, , [facility], [address] [place] [address], [facility], [facility] Follow up. Call for the next available appointment. (Electronically signed by Lee Ann Blanco MD 10/28/2016 8:11)
--- NOTE | 2016-10-28 08:12 | ED DISCHARGE INSTRUCTIONS ---
Patient: ARTHUR LAWRENCE General Instructions [facility] VisitID: [id number] Kassi LopezMatthew Ville [id number] 26y, F Registration Date/Time: 10/24/2016 Vomiting with nausea. First trimester ; positive test in emergency department. INSTRUCTIONS Drink plenty of fluids. (Your urine culture was negative, therefore you do not need to take antibiotics.). Warnings: GENERAL WARNINGS: Return or contact your physician immediately if your condition worsens or changes unexpectedly, if not improving as expected, or if other problems arise. Your Current Medications: CONTINUE TAKING THE FOLLOWING MEDICATIONS: "not taking the antibiotics for UTI"*. Understanding of the discharge instructions verbalized by patient. Follow-up with: Rodney West MD, Obstetrics/Gynecology, , [facility], [address] [place] [address] Follow up. Call for the next available appointment. ADDITIONAL INFORMATION Vomiting [6Yr-Adult] Vomiting is a common symptom that may be due to different causes. These include gastroenteritis ("stomach flu"), food poisoning and gastritis. There are other more serious causes of vomiting which may be hard to diagnose early in the illness. Therefore, it is important to watch for the warning signs listed below. The main danger from repeated vomiting is dehydration. This is due to excess loss of water and minerals from the body. When this occurs, body fluids must be replaced. Home Care: If symptoms are severe, rest at home for the next 24 hours. You may use acetaminophen (Tylenol) or ibuprofen (Motrin, Advil) to control fever, unless another medicine was prescribed. [NOTE : If you have chronic liver or kidney disease or ever had a stomach ulcer or GI bleeding, talk with your doctor before using these medicines.] (Aspirin should never be used in anyone under 18 years of age who is ill with a fever. It may cause severe liver damage.) Avoid tobacco and alcohol use, which may worsen your symptoms. If medicines for vomiting were prescribed, take as directed. Once vomiting stops, then follow these guidelines: During The First 12-24 Hours follow the diet below: FRUIT JUICES: Apple, grape juice, clear fruit drinks, and electrolyte replacement drinks. BEVERAGES: Soft drinks without caffeine; mineral water (plain or flavored), decaffeinated tea and coffee. SOUPS: Clear broth, consomm and bouillon DESSERTS: Plain gelatin, popsicles and fruit juice bars. As you feel better, you may add 6-8 ounces of yogurt per day. During The Next 24 Hours you may add the following to the above: Hot cereal, plain toast, bread, rolls, crackers Plain noodles, rice, mashed potatoes, chicken noodle or rice soup Unsweetened canned fruit (avoid pineapple), bananas Limit caffeine and chocolate. No spices or seasonings except salt. During The Next 24 Hours Gradually resume a normal diet, as you feel better and your symptoms lessen. Follow Up with your doctor as advised if you are not improving over the next 2-3 days. Get Prompt Medical Attention if any of the following occur: Constant right-sided lower abdominal pain or increasing general abdominal pain Continued vomiting (unable to keep liquids down) for 24 hours Frequent diarrhea (more than 5 times a day); blood (red or black color) or mucus in diarrhea Reduced urine output or extreme thirst Weakness, dizziness or fainting Unusually drowsy or confused Fever of 100.4F (38C) oral or higher, not better with fever medication Yellow color of the eyes or skin Your exam today shows that you are . During , it is normal to develop tender swollen breasts, frequent urination and mild vaginal discharge. During the first three months, nausea is common. Guidelines For A Healthy : To ensure that your baby is born healthy there are certain things that you can do: When you feel tired, you should REST. This is especially true in the later months of . Your body needs more FLUIDS than you may be used to: You should drink 8-10 glasses of juice, milk or water. Eat well-balanced MEALS at regular intervals to supply your body with enough protein. You can expect a total weight gain of about 30 pounds during the . Do not try to diet or lose weight while you are . Because of the extra nutritional needs during , take one VITAMIN daily. Do not take any other MEDICINE during your (prescribed or [id number]) unless your doctor specifically recommends this. Many drugs can have harmful effects on the growing baby. If NAUSEA or VOMITING become a problem, avoid greasy and fried foods. Eat several smaller meals throughout the day rather than three large meals. If you SMOKE, you must stop. The nicotine you breathe in goes right to the baby. Stay away from ALCOHOL, even in moderate amounts. Daily drinking will harm your baby and can cause permanent brain damage. RECREATIONAL DRUGS are harmful, especially cocaine, crack, and heroin. Marijuana should also be avoided. If you were using recreational drugs or prescribed medicine when you found out that you were , talk to your doctor about possible effects on the fetus. Follow Up: Call to arrange for care. This can be provided by your family doctor, an director of customer acquisition ( specialist) or a primary care clinic. Get Prompt Medical Attention if any of the following occur: Vaginal bleeding Moderate or severe abdominal or back pain Excessive vomiting, unable to keep any fluids down for six hours Burning with urination Headache, dizziness or rapid weight gain You have been given the following additional information: Vomiting (6Y-Adult) , New Dx (Electronically signed by Lee Ann Blanco MD 10/28/2016 8:11)
--- NOTE | 2016-10-28 08:12 | ED MAR SUMMARY ---
..... Medication Administration Record [facility] [address] [place] [address] Patient: ARTHUR LAWRENCE Visit ID: [id number] 26y, F Weight: 57.6 kg Height/Length: 62 in BMI: 23.2 ALLERGIES: Percocet, Vicodin Start 15:17 10/24/2016 Kandy Parsons R.N., Stop 16:30 10/24/2016 Kandy Parsons R.N. Medication Administered: IV NS (SALINE), Dose: IV Fluids over 1 hour(s), Rate: 1000 mL/hr, Dispensed: 1000 mL bag, Site: #1 right forearm. Medication Ordered: IV NS with Normal Saline 1 Liter: initial bolus none -, then 1000 mL/hr for X1 (NOW). Given 15:18 10/24/2016 Kandy Parsons R.N. Medication Administered: BENADRYL [IVP] (DIPHENHYDRAMINE HCL), Dose: 25 mg IVP over 2 minute(s), Site: #1 right forearm. Medication Ordered: Benadryl IV 25 mg (NOW). Given 15:10/24/2016 Kandy Parsons R.N. Medication Administered: PHENERGAN [IVP] (PROMETHAZINE HCL), Dose: 12.5 mg IVP over 2 minute(s), Site: #1 right forearm. Medication Ordered: Phenergan IV 12.5 mg (HIGH ALERT MEDICATION, NOW).
--- NOTE | 2016-10-28 08:12 | ED DISCHARGE INSTRUCTIONS ---
Patient: ARTHUR LAWRENCE General Instructions [facility] VisitID: [id number] Kassi LopezCharles Ville [phone] 26y, F Registration Date/Time: 10/24/2016 Vomiting with nausea. First trimester ; positive test in emergency department. INSTRUCTIONS Drink plenty of fluids. (Your urine culture was negative, therefore you do not need to take antibiotics.). Warnings: GENERAL WARNINGS: Return or contact your physician immediately if your condition worsens or changes unexpectedly, if not improving as expected, or if other problems arise. Your Current Medications: CONTINUE TAKING THE FOLLOWING MEDICATIONS: "not taking the antibiotics for UTI"*. Understanding of the discharge instructions verbalized by patient. Follow-up with: Rodney West MD, Obstetrics/Gynecology, , [facility], [address] [place] [address] Follow up. Call for the next available appointment. ADDITIONAL INFORMATION Vomiting [6Yr-Adult] Vomiting is a common symptom that may be due to different causes. These include gastroenteritis ("stomach flu"), food poisoning and gastritis. There are other more serious causes of vomiting which may be hard to diagnose early in the illness. Therefore, it is important to watch for the warning signs listed below. The main danger from repeated vomiting is dehydration. This is due to excess loss of water and minerals from the body. When this occurs, body fluids must be replaced. Home Care: If symptoms are severe, rest at home for the next 24 hours. You may use acetaminophen (Tylenol) or ibuprofen (Motrin, Advil) to control fever, unless another medicine was prescribed. [NOTE : If you have chronic liver or kidney disease or ever had a stomach ulcer or GI bleeding, talk with your doctor before using these medicines.] (Aspirin should never be used in anyone under 18 years of age who is ill with a fever. It may cause severe liver damage.) Avoid tobacco and alcohol use, which may worsen your symptoms. If medicines for vomiting were prescribed, take as directed. Once vomiting stops, then follow these guidelines: During The First 12-24 Hours follow the diet below: FRUIT JUICES: Apple, grape juice, clear fruit drinks, and electrolyte replacement drinks. BEVERAGES: Soft drinks without caffeine; mineral water (plain or flavored), decaffeinated tea and coffee. SOUPS: Clear broth, consomm and bouillon DESSERTS: Plain gelatin, popsicles and fruit juice bars. As you feel better, you may add 6-8 ounces of yogurt per day. During The Next 24 Hours you may add the following to the above: Hot cereal, plain toast, bread, rolls, crackers Plain noodles, rice, mashed potatoes, chicken noodle or rice soup Unsweetened canned fruit (avoid pineapple), bananas Limit caffeine and chocolate. No spices or seasonings except salt. During The Next 24 Hours Gradually resume a normal diet, as you feel better and your symptoms lessen. Follow Up with your doctor as advised if you are not improving over the next 2-3 days. Get Prompt Medical Attention if any of the following occur: Constant right-sided lower abdominal pain or increasing general abdominal pain Continued vomiting (unable to keep liquids down) for 24 hours Frequent diarrhea (more than 5 times a day); blood (red or black color) or mucus in diarrhea Reduced urine output or extreme thirst Weakness, dizziness or fainting Unusually drowsy or confused Fever of 100.4F (38C) oral or higher, not better with fever medication Yellow color of the eyes or skin Your exam today shows that you are . During , it is normal to develop tender swollen breasts, frequent urination and mild vaginal discharge. During the first three months, nausea is common. Guidelines For A Healthy : To ensure that your baby is born healthy there are certain things that you can do: When you feel tired, you should REST. This is especially true in the later months of . Your body needs more FLUIDS than you may be used to: You should drink 8-10 glasses of juice, milk or water. Eat well-balanced MEALS at regular intervals to supply your body with enough protein. You can expect a total weight gain of about 30 pounds during the . Do not try to diet or lose weight while you are . Because of the extra nutritional needs during , take one VITAMIN daily. Do not take any other MEDICINE during your (prescribed or [id number]) unless your doctor specifically recommends this. Many drugs can have harmful effects on the growing baby. If NAUSEA or VOMITING become a problem, avoid greasy and fried foods. Eat several smaller meals throughout the day rather than three large meals. If you SMOKE, you must stop. The nicotine you breathe in goes right to the baby. Stay away from ALCOHOL, even in moderate amounts. Daily drinking will harm your baby and can cause permanent brain damage. RECREATIONAL DRUGS are harmful, especially cocaine, crack, and heroin. Marijuana should also be avoided. If you were using recreational drugs or prescribed medicine when you found out that you were , talk to your doctor about possible effects on the fetus. Follow Up: Call to arrange for care. This can be provided by your family doctor, an departmental shipping clerk ( specialist) or a primary care clinic. Get Prompt Medical Attention if any of the following occur: Vaginal bleeding Moderate or severe abdominal or back pain Excessive vomiting, unable to keep any fluids down for six hours Burning with urination Headache, dizziness or rapid weight gain You have been given the following additional information: Vomiting (6Y-Adult) , New Dx (Electronically signed by Lee Ann Blanco MD 10/28/2016 8:11)
--- NOTE | 2016-10-28 08:12 | ED MAR SUMMARY ---
..... Medication Administration Record [facility] [address] [place] [address] Patient: ARTHUR LAWRENCE Visit ID: [id number] 26y, F Weight: 57.6 kg Height/Length: 62 in BMI: 23.2 ALLERGIES: Percocet, Vicodin Start 15:17 10/24/2016 Kandy Parsons R.N., Stop 16:30 10/24/2016 Kandy Parsons R.N. Medication Administered: IV NS (SALINE), Dose: IV Fluids over 1 hour(s), Rate: 1000 mL/hr, Dispensed: 1000 mL bag, Site: #1 right forearm. Medication Ordered: IV NS with Normal Saline 1 Liter: initial bolus none -, then 1000 mL/hr for X1 (NOW). Given 15:18 10/24/2016 Kandy Parsons R.N. Medication Administered: BENADRYL [IVP] (DIPHENHYDRAMINE HCL), Dose: 25 mg IVP over 2 minute(s), Site: #1 right forearm. Medication Ordered: Benadryl IV 25 mg (NOW). Given 15:10/24/2016 Kandy Parsons R.N. Medication Administered: PHENERGAN [IVP] (PROMETHAZINE HCL), Dose: 12.5 mg IVP over 2 minute(s), Site: #1 right forearm. Medication Ordered: Phenergan IV 12.5 mg (HIGH ALERT MEDICATION, NOW).
--- NOTE | 2016-10-28 08:12 | ED MED RECONCILIATION SUMMARY ---
Patient: ARTHUR LAWRENCE Medication Reconciliation Report [facility] VisitID: [id number] [address] [place] [address] 26y, F Registration Date/Time: 10/24/2016 Weight: 57.6 kg Height/Length: 62 in. BMI: 23.2 ALLERGIES: Percocet, Vicodin The patient's Home Medications are listed below: CONTINUE TAKING THE FOLLOWING MEDICATIONS: "not taking the antibiotics for UTI" The source(s) of the original Home Medication information: Not obtained. The following Medications were given to the patient in the Emergency Department: IV NS IV Fluids bolus 0, then 1000 mL/hr, administered: 10/24/2016 3:17:00 PM Benadryl [IVP] IVP 25 mg, administered: 10/24/2016 3:18:00 PM PHENERGAN [IVP] IVP 12.5 mg, administered: 10/24/2016 3:23:00 PM The following Medications were prescribed to the patient: None.
--- NOTE | 2016-10-28 08:12 | ED MED RECONCILIATION SUMMARY ---
Patient: ARTHUR LAWRENCE Medication Reconciliation Report [facility] VisitID: [id number] [address] [place] [address] 26y, F Registration Date/Time: 10/24/2016 Weight: 57.6 kg Height/Length: 62 in. BMI: 23.2 ALLERGIES: Percocet, Vicodin The patient's Home Medications are listed below: CONTINUE TAKING THE FOLLOWING MEDICATIONS: "not taking the antibiotics for UTI" The source(s) of the original Home Medication information: Not obtained. The following Medications were given to the patient in the Emergency Department: IV NS IV Fluids bolus 0, then 1000 mL/hr, administered: 10/24/2016 3:17:00 PM Benadryl [IVP] IVP 25 mg, administered: 10/24/2016 3:18:00 PM PHENERGAN [IVP] IVP 12.5 mg, administered: 10/24/2016 3:23:00 PM The following Medications were prescribed to the patient: None.
== END 2016-10-24 16:32 | disposition home or self-care (01) ==
LOC: ED SRH 13:52
DX: O21.0 Mild hyperemesis gravidarum (principal); Z3A.00 Weeks of gestation of pregnancy not specified; F17.210 Nicotine dependence, cigarettes, uncomplicated; Z88.5 Allergy status to narcotic agent

== ENCOUNTER 2016-11-05 23:45 | Emergency (ER) | payer OTHER ==
--- NOTE | 2016-11-07 02:28 | ED ORDER SUMMARY ---
..... Patient: ARTHUR LAWRENCE OrderSheet [facility] VisitID: [id number] [address] [place] [address] 26y, F Registration Date/Time: 11/05/2016 ORDER SHEET Weight: 57.6 kg (stated) Allergies: Percocet, Vicodin, Wellbutrin GENERAL ORDERS: CBC w Diff Urgent (00:38 11/06/2016 [facility]) (Ack 0:55 [facility]ty ER System Sales Consultant) (0:57 JQuivey R.N.) UA-Culture if indicated Urgent (00:38 11/06/2016 [facility]) (Ack 0:39 JQuivey R.N.) (1:52 [facility] System Sales Consultant) CMP Urgent (00:38 11/06/2016 [facility] DO) (Ack 0:55 [facility]agerty ER System Sales Consultant) (0:57 JQuivey R.N.) NPO (00:38 11/06/2016 [facility]) (0:57 JQuivey R.N.) MEDICATION ORDERS: IV FLUIDS: IV NS : initial bolus 1000 mL (1000 mL/hr), then 1000 mL/hr for X1 (NOW) (00:37 11/06/2016 [facility]) (0:42 JQuivey R.N.) Zofran IV 4 mg (NOW) (00:38 11/06/2016 [facility]) (0:43 JQuivey R.N.) Benadryl IV 25 mg (NOW) (00:43 11/06/2016 JQuivey R.N. verbal order read back to [facility]) (0:44 JQuivey R.N.) ORDER SHEET NOTES: [Electronically signed by Yandel Mcbride R.N. (02:11/06/2016)] [Electronically signed by Teddy Hernandez DO (02:11/06/2016)] [Electronically locked/signed by Yandel Mcbride R.N. (02:11/06/2016)]
--- NOTE | 2016-11-07 02:28 | ED NURSING NOTES ---
Clinical Report - Nurses [facility] [address] [place] [address] 11/06/2016 0:31 Patient: ARTHUR LAWRENCE TRIAGE Triage time 2354 PM. Acuity: LEVEL 3. Chief Complaint: NAUSEA and VOMITING. Alert. SEPSIS SCREEN: Sepsis Screen. Negative (no infection suspected/documented). --01:08 Yandel Mcbride R.N. 00:59 11/06/16. BP: 111/65. HR: 113. RR: 12 (regular and unlabored). O2 saturation: 98% on room air. Temp: 98.5 F (oral). Pain level now: 0/10. --01:08 Yandel Mcbride R.N. Weight: 57.6 kg stated. Height/Length: 62 inches Per Patient. BMI: 23.2. --01:00 Yandel Mcbride R.N. Medications Zofran Oral 8 mg, PRN. --00:46 Teddy Hernandez DO. Allergies Percocet. Vicodin. Wellbutrin. (heart palputations) --01:01 Yandel Mcbride R.N. Medication/allergy information source: the patient. --01:08 Yandel Mcbride R.N. History Arrived by private vehicle. Historian: patient. Accompanied by family. This started today. Treatment CONFORMAL PAD FORMER: (8mg zofran, (home script)). PAST MEDICAL HX: Immunizations: up-to-date. Last normal menstrual period- Sep 04, 2016. Confirmed . G 3. P 0. Ab 2. SOCIAL HX: Former smoker, end date 10/30/2016. History of drug use: marijuana. ("daily"). No alcohol use. No recent travel. No infectious disease exposure. ABUSE ASSESSMENT: No report of abuse. FALL RISK ASSESSMENT: Fall risk assessment completed. No fall risk identified. FUNCTIONAL ASSESSMENT: Functional assessment: no impairments noted. LEARNING NEEDS ASSESSMENT: The learning needs assessment revealed no barriers. NUTRITIONAL RISK ASSESSMENT: Nutritional risk assessment notes: nausea/vomiting. SKIN INTEGRITY ASSESSMENT: Skin integrity risk assessment completed. No skin integrity risk identified. --01:08 Yandel Mcbride R.N. ( vomiting starting "6 hours ago"). --01:11 Yandel Mcbride R.N. PROBLEMS: Bicornuate uterus. UTI - Urinary Tract Infection. Ectopic . Hyperemesis Gravidarum. Anxiety Reaction. Vomiting. Depression. --01:02 Yandel Mcbride R.N. ADDITIONAL SURGERIES: no known surgeries. Interventions ID band on patient. To treatment room. --01:08 Yandel Mcbride R.N. PHYSICAL ASSESSMENT 23:54. Ambulatory to room. Patient gowned. GENERAL / NEURO / PSYCH: Alert. Oriented X 4. Appears in no acute distress. HEENT: Mucous membranes are pink. RESPIRATORY: Respirations not labored. CVS: Capillary refill less than 2 seconds. GI / : The patient has had nausea. SKIN: Skin is warm and dry. --01:11 Yandel Mcbride R.N. NURSING PROGRESS NOTES 23:59 11/05/2016 Site #1 started via IV in the left antecubital space with an 20g angiocath, with aseptic technique and good blood return; one attempt. Blood drawn. Labeled in the presence of the patient and sent to the lab. Saline lock flushed with 10 mL saline. --00:42 Talha Kruger R.N. 00:38 11/06/2016 Started bag #1 1000 mL IV Fluids IV NS (Saline); at 1000 mL/hr over 1 hour(s) via site #1 --00:42 Talha Kruger R.N. 00:40 11/06/2016 Zofran (Ondansetron HCl) IVP 4 mg given over 2 minute(s) via site #1. Allergies verified and confirmed 5 rights. IV patency established. IV site checked: no pain, redness, or swelling. IV flushed thoroughly pre- and post-medication administration. --00:43 Talha Kruger R.N. 00:42 11/06/2016 Benadryl (DiphenhydrAMINE HCl) IVP 25 mg given over 2 minute(s) via site #1. Allergies verified, confirmed 5 rights and sedative warning given to the patient. IV patency established. IV site checked: no pain, redness, or swelling. IV flushed thoroughly pre- and post-medication administration. --00:44 Talha Kruger R.N. 01:32 Patient to restroom to obtain urine sample. --01:33 Talha Kruger R.N. 02:15. The patient is calm and resting quietly. --02:20 Yandel Mcbride R.N. 23:58. Patient gowned. Head of bed elevated. Two patient identifiers checked. Call light placed in reach. Side rails up x 1. Bed placed in lowest position. Brakes of bed on. Patient ready for evaluation- chart flagged and ED physician notified. --01:13 Yandel Mcbride R.N. 01:43 11/06/2016 IV Fluids IV NS Bag Change: bag #1 infused. Total amount infused: 1000. STARTED bag #2 (1000 mL) at 1000 mL/hr. IV patency established. IV site checked: no pain, redness, or swelling. IV flushed thoroughly. --01:58 Talha Kruger R.N. DISPOSITION / DISCHARGE 02:06 11/06/2016 IV Fluids IV NS Discontinued: bag #2 STOPPED upon discharge. Total amount infused: 900 mL. IV patency established. IV site checked: no pain, redness, or swelling. IV flushed thoroughly. --02:16 Yandel Mcbride R.N. 02:08 11/06/2016 Site #1 removed upon discharge. Catheter intact. Manual pressure and bandage applied. --02:17 Yandel Mcbride R.N. 02:17. Condition at departure: improved and stable. No learning barriers present. Discharge instructions provided and reviewed with library historian and the patient. Reviewed medication(s) side effects, precautions, dosing and course information. Prescription(s) given to the patient. Patient verbalized understanding. Written instructions provided in [place]er. The patient was discharged by the physician. She was discharged home and accompanied by library historian. She left the Emergency Department ambulatory and via private vehicle. Copy Clerk driving. --02:19 Yandel Mcbride R.N. 02:15 11/06/16. BP: 102/59. HR: 85. RR: 15 (unlabored). O2 saturation: 99% on room air. Pain level now: 0/10. --02:19 Yandel Mcbride R.N. Departure time: 02:17. --02:20 Yandel Mcbride R.N. Locked/Released at 11/06/2016 2:24 by Yandel Mcbride R.N.
--- NOTE | 2016-11-07 02:28 | ED ORDER SUMMARY ---
..... Patient: ARTHUR LAWRENCE OrderSheet [facility] VisitID: [id number] [address] [place] [address] 26y, F Registration Date/Time: 11/05/2016 ORDER SHEET Weight: 57.6 kg (stated) Allergies: Percocet, Vicodin, Wellbutrin GENERAL ORDERS: CBC w Diff Urgent (00:38 11/06/2016 [facility]) (Ack 0:55 [facility] ER Shipping Receiving Manager) (0:57 JQuivey R.N.) UA-Culture if indicated Urgent (00:38 11/06/2016 [facility]) (Ack 0:39 JQuivey R.N.) (1:52 [facility] ER Shipping Receiving Manager) CMP Urgent (00:38 11/06/2016 [facility] DO) (Ack 0:55 [facility] ER Shipping Receiving Manager) (0:57 JQuivey R.N.) NPO (00:38 11/06/2016 [facility]) (0:57 JQuivey R.N.) MEDICATION ORDERS: IV FLUIDS: IV NS : initial bolus 1000 mL (1000 mL/hr), then 1000 mL/hr for X1 (NOW) (00:37 11/06/2016 [facility]) (0:42 JQuivey R.N.) Zofran IV 4 mg (NOW) (00:38 11/06/2016 [facility]) (0:43 JQuivey R.N.) Benadryl IV 25 mg (NOW) (00:43 11/06/2016 JQuivey R.N. verbal order read back to [facility]) (0:44 JQuivey R.N.) ORDER SHEET NOTES: [Electronically signed by Yandel Mcbride R.N. (02:11/06/2016)] [Electronically signed by Teddy Hernandez DO (02:11/06/2016)] [Electronically locked/signed by Yandel Mcbride R.N. (02:11/06/2016)]
--- NOTE | 2016-11-07 02:28 | ED CLINICAL REPORT ---
Clinical Report - Physicians/Mid Levels Formerly [facility] [address] [place] [address] 11/06/2016 0:31 Patient: ARTHUR LAWRENCE Time Seen: 00:26. Arrived- By private vehicle. Historian- patient and family. Note: . HISTORY OF PRESENT ILLNESS Chief Complaint: VOMITING. This started about 6 hours ago and is still present. It was gradual in onset and has been waxing/waning. No recent travel. She has had nausea. She has had moderate vomiting. The vomiting has occurred several times. No blood-tinged emesis or frankly bloody emesis. No diarrhea, black stools, bloody stools or abdominal pain. Has not recently been camping or on antibiotics. The illness is described as moderate. Similar symptoms previously: Many times. ( Hyperemesis with prior (twin) ). Recent medical care: The patient was seen recently by a health care provider. REVIEW OF SYSTEMS Last normal menstrual period- Sep 07. 3. Para 0. Abortions 2. No fever, muscle aches, difficulty with urination, headache or sore throat. No cough, chest pain, difficulty breathing, excessive urination or skin rash. No jaundice or back pain. Currently : 9 weeks. All systems otherwise negative, except as recorded above. PAST HISTORY See nurses notes. OB: Dr West Problems: Bicornuate uterus. Dental Pain. Ectopic . Threatened . OB History. Substance Abuse. Hyperemesis Gravidarum. Anxiety Reaction. Depression. Hyperemesis gravidarum SURGERIES: None. Surgeries: No history of previous surgery. Medications: Zofran Oral 8 mg, PRN. SOCIAL HISTORY Smoker- current status unknown. History of drug use: marijuana. No alcohol use. Is a local resident. ADDITIONAL NOTES The nursing notes have been reviewed. PHYSICAL EXAM Vital Signs: Blood pressure: BP 111 / 65. Heart rate: 113. Respiratory rate 12. Temperature: 98.5 oral. Oxygen saturation: 98 % room air. Appearance: Alert. Oriented X3. Patient in moderate distress. Eyes: Eyes normal inspection. No pale conjunctivae or scleral icterus. ENT: Pharynx normal. No pharyngeal erythema or tonsillar exudate. The mucous membranes are not dry. Neck: Normal inspection. Neck supple. CVS: Tachycardia. Heart sounds normal. Pulses normal. Respiratory: No respiratory distress. Breath sounds normal. Abdomen: Soft and nontender. No organomegaly. Back: Normal inspection. Skin: No cyanosis. Skin warm and dry. No pallor. Normal skin color. No rash. Normal skin turgor. No diaphoresis. Extremities: Extremities exhibit normal ROM. No calf tenderness. No lower extremity edema. Neuro: Oriented X 3. No motor deficit. No sensory deficit. LABS, X-RAYS, AND EKG Laboratory Tests: UA-Culture if indicated: (OCHOA: 11/06/2016 01:32) ( MsgRcvd 11/06/2016 01:44) Final results Test Result Flag Units (Reference) URINE COLOR YELLOW URINE APPEARANCE CLEAR URINE GLUCOSE NEGATIVE (NEGATIVE) URINE BILIRUBIN NEGATIVE (NEGATIVE) URINE KETONE 3+ (NEGATIVE) URINE SPECIFIC GRAVITY 1.020 (1.010-1.030) URINE PH 7.0 (5.0-8.0) URINE PROTEIN 1+ (NEGATIVE) URINE UROBILINOGEN 1.0 EU/dL (0.2-1.0) URINE NITRITE NEGATIVE (NEGATIVE) URINE BLOOD NEGATIVE (NEGATIVE) URINE LEUK ESTERASE NEGATIVE (NEGATIVE) URINE RBC 0-1 rbc/hpf (0-1) URINE WBC 0-1 wbc/hpf (0-1) URINE EPITHELIAL CELLS 1-3 EPI/hpf (0-5) URINE BACTERIA TRACE (<1+) (NONE SEEN) URINE COMMENT CULT NOT INDICATED URINE CULTURES ARE SET-UP BASED ON THE FOLLOWING CRITERIA:POSITIVE NITRITEPOSITIVE LEUKOCYTE ESTERASEGREATER THAN 10 WHITE BLOOD CELLSMODERATE (2+) OR GREATER BACTERIA CBC w Diff: (OCHOA: 11/06/2016 00:01) ( MsgRcvd 11/06/2016 01:02) Final results Test Result Flag Units (Reference) WHITE BLOOD COUNT 8.1 K/uL (4.5-11.5) RED BLOOD COUNT 4.48 M/uL (4.00-5.20) HEMOGLOBIN 13.3 gm/dL (12.0-16.0) HEMATOCRIT 39.0 % (36.0-46.0) MEAN CELL VOLUME 87 fL (80-100) MEAN CORPUSCULAR HGB 30 pg (26-34) MEAN CORPUSCULAR HGB CONC 34 g/dL (31-37) RED CELL DISTRIBUTION WIDTH 13.1 % (11.6-14.8) PLATELET COUNT 243 K/uL (150-400) NEUTROPHIL % 77.6 H % (50-75) LYMPH % 16.2 L % (25-40) MONO % 5.7 % (3-14) EOSINOPHIL % 0.3 % (0-4) BASOPHIL % 0.2 % (0-2) CMP: (OCHOA: 11/06/2016 00:01) ( MsgRcvd 11/06/2016 01:11) Final results Test Result Flag Units (Reference) GLUCOSE 112 H mg/dL (70-110) BUN 13 mg/dL (7-18) CREATININE 0.7 mg/dL (0.6-1.3) Estimated GFR >60 mL/min Estimated GFR- >60 mL/min Note: Persistent reduction over 3 months in eGFR<60 mL/min/1.73 m2 defines CKD. Patients with eGFR values>=60 mL/min/1.73 m2 may also have CKD if evidence ofpersistent proteinuria. Additional information may be foundat www.[email or web address].org. SODIUM 141 mmol/L (136-145) POTASSIUM 3.7 mmol/L (3.5-5.1) CHLORIDE 103 mmol/L (98-107) CARBON DIOXIDE 24 mmol/L (21-32) CALCIUM 9.0 mg/dL (8.5-10.1) TOTAL PROTEIN 7.7 g/dL (6.4-8.2) ALBUMIN 4.2 g/dL (3.3-5.0) BILIRUBIN, TOTAL 1.4 H mg/dL (0.0-1.0) ALKALINE PHOSPHATASE 41 L U/L (46-116) AST (SGOT) 11 L U/L (15-37) ALT (SGPT) 18 U/L (12-78) . Pulse Oximetry: 11/06/2016 00:44 O2 saturation: 98%. (FIO2 - room air). Interpretation: normal. PROGRESS AND PROCEDURES Course of Care: Normal Saline 1 liter IVPB given. Benadryl 25 mg IVP given. Zofran 4 mg IVP given. Patient is stable. Physical exam findings are improved. Symptoms much better. 11/06/2016 02:15 BP: 102/59. HR: 85. RR: 15. O2 saturation: 99%. Pain level now: 0/10. Patient/family counseled. Old ED records reviewed. Patient has had multiple ED visits. Disposition: Discharged. Condition: stable and improved. CLINICAL IMPRESSION Abnormal liver function test: total bilirubin. Mild hyperemesis gravidarum less than 21 weeks with ketones. No volume depletion, dehydration or electrolyte imbalance. INSTRUCTIONS Rest. Do not work for three days. Drink plenty of fluids. Avoid alcohol and NSAIDS. Examples of NSAIDS include aspirin, ibuprofen (Advil) and naproxen (Aleve). Avoid fatty, fried/greasy, lactose-containing (such as milk, cheese and ice cream), salty and spicy foods. Warnings: Further evaluation is necessary in order to recheck abnormal lab, obtain test results, conduct further tests and assess the possibility of serious illness. It is very important to follow up with a physician. SEDATIVE MEDICATION: You were given sedative medication during your visit. Do not drive or operate dangerous machinery. GENERAL WARNINGS: Return or contact your physician immediately if your condition worsens or changes unexpectedly, if not improving as expected, or if other problems arise. Your Current Medications: CONTINUE TAKING THE FOLLOWING MEDICATIONS: Zofran Oral : 8 mg PRN. Prescription Medications: Zofran (orally disintegrating tablets) 4 mg: take 1-2 orally every 8 hours as needed for nausea and vomiting. Dispense ten (10). No refill. Substitution is permissible. OTC Medications: Take acetaminophen (Tylenol, Datril, etc.) according to label instructions. Available over the counter. Follow-up with: Rodney West MD, Obstetrics/Gynecology, , [facility], [address] [place] [address], [facility] Follow up tomorrow. (Electronically signed by Teddy Hernandez DO 11/06/2016 2:25)
--- NOTE | 2016-11-07 02:28 | ED NURSING NOTES ---
Clinical Report - Nurses [facility] [address] [place] [address] 11/06/2016 0:31 Patient: ARTHUR LAWRENEC TRIAGE Triage time 2354 PM. Acuity: LEVEL 3. Chief Complaint: NAUSEA and VOMITING. Alert. SEPSIS SCREEN: Sepsis Screen. Negative (no infection suspected/documented). --01:08 Yandel Mcbride R.N. 00:59 11/06/16. BP: 111/65. HR: 113. RR: 12 (regular and unlabored). O2 saturation: 98% on room air. Temp: 98.5 F (oral). Pain level now: 0/10. --01:08 Yandel Mcbride R.N. Weight: 57.6 kg stated. Height/Length: 62 inches Per Patient. BMI: 23.2. --01:00 Yandel Mcbride R.N. Medications Zofran Oral 8 mg, PRN. --00:46 Teddy Hernandez DO. Allergies Percocet. Vicodin. Wellbutrin. (heart palputations) --01:01 Yandel Mcbride R.N. Medication/allergy information source: the patient. --01:08 Yandel Mcbride R.N. History Arrived by private vehicle. Historian: patient. Accompanied by family. This started today. Treatment DIETITIAN HELPER: (8mg zofran, (home script)). PAST MEDICAL HX: Immunizations: up-to-date. Last normal menstrual period- Sep 04, 2016. Confirmed . G 3. P 0. Ab 2. SOCIAL HX: Former smoker, end date 10/30/2016. History of drug use: marijuana. ("daily"). No alcohol use. No recent travel. No infectious disease exposure. ABUSE ASSESSMENT: No report of abuse. FALL RISK ASSESSMENT: Fall risk assessment completed. No fall risk identified. FUNCTIONAL ASSESSMENT: Functional assessment: no impairments noted. LEARNING NEEDS ASSESSMENT: The learning needs assessment revealed no barriers. NUTRITIONAL RISK ASSESSMENT: Nutritional risk assessment notes: nausea/vomiting. SKIN INTEGRITY ASSESSMENT: Skin integrity risk assessment completed. No skin integrity risk identified. --01:08 Yandel Mcbride R.N. ( vomiting starting "6 hours ago"). --01:11 Yandel Mcbride R.N. PROBLEMS: Bicornuate uterus. UTI - Urinary Tract Infection. Ectopic . Hyperemesis Gravidarum. Anxiety Reaction. Vomiting. Depression. --01:02 Yandel Mcbride R.N. ADDITIONAL SURGERIES: no known surgeries. Interventions ID band on patient. To treatment room. --01:08 Yandel Mcbride R.N. PHYSICAL ASSESSMENT 23:54. Ambulatory to room. Patient gowned. GENERAL / NEURO / PSYCH: Alert. Oriented X 4. Appears in no acute distress. HEENT: Mucous membranes are pink. RESPIRATORY: Respirations not labored. CVS: Capillary refill less than 2 seconds. GI / : The patient has had nausea. SKIN: Skin is warm and dry. --01:11 Yandel Mcbride R.N. NURSING PROGRESS NOTES 23:59 11/05/2016 Site #1 started via IV in the left antecubital space with an 20g angiocath, with aseptic technique and good blood return; one attempt. Blood drawn. Labeled in the presence of the patient and sent to the lab. Saline lock flushed with 10 mL saline. --00:42 Talha Kruger R.N. 00:38 11/06/2016 Started bag #1 1000 mL IV Fluids IV NS (Saline); at 1000 mL/hr over 1 hour(s) via site #1 --00:42 Talha Krugre R.N. 00:40 11/06/2016 Zofran (Ondansetron HCl) IVP 4 mg given over 2 minute(s) via site #1. Allergies verified and confirmed 5 rights. IV patency established. IV site checked: no pain, redness, or swelling. IV flushed thoroughly pre- and post-medication administration. --00:43 Talha Kruger R.N. 00:42 11/06/2016 Benadryl (DiphenhydrAMINE HCl) IVP 25 mg given over 2 minute(s) via site #1. Allergies verified, confirmed 5 rights and sedative warning given to the patient. IV patency established. IV site checked: no pain, redness, or swelling. IV flushed thoroughly pre- and post-medication administration. --00:44 Talha Kruger R.N. 01:32 Patient to restroom to obtain urine sample. --01:33 Talha Kruger R.N. 02:15. The patient is calm and resting quietly. --02:20 Yandel Mcbride R.N. 23:58. Patient gowned. Head of bed elevated. Two patient identifiers checked. Call light placed in reach. Side rails up x 1. Bed placed in lowest position. Brakes of bed on. Patient ready for evaluation- chart flagged and ED physician notified. --01:13 Yandel Mcbride R.N. 01:43 11/06/2016 IV Fluids IV NS Bag Change: bag #1 infused. Total amount infused: 1000. STARTED bag #2 (1000 mL) at 1000 mL/hr. IV patency established. IV site checked: no pain, redness, or swelling. IV flushed thoroughly. --01:58 Talha Kruger R.N. DISPOSITION / DISCHARGE 02:06 11/06/2016 IV Fluids IV NS Discontinued: bag #2 STOPPED upon discharge. Total amount infused: 900 mL. IV patency established. IV site checked: no pain, redness, or swelling. IV flushed thoroughly. --02:16 Yandel Mcbride R.N. 02:08 11/06/2016 Site #1 removed upon discharge. Catheter intact. Manual pressure and bandage applied. --02:17 Yandel Mcbride R.N. 02:17. Condition at departure: improved and stable. No learning barriers present. Discharge instructions provided and reviewed with delinquent tax collection assistant and the patient. Reviewed medication(s) side effects, precautions, dosing and course information. Prescription(s) given to the patient. Patient verbalized understanding. Written instructions provided in [place]i. The patient was discharged by the physician. She was discharged home and accompanied by delinquent tax collection assistant. She left the Emergency Department ambulatory and via private vehicle. Pad Hand driving. --02:19 Yandel Mcbride R.N. 02:15 11/06/16. BP: 102/59. HR: 85. RR: 15 (unlabored). O2 saturation: 99% on room air. Pain level now: 0/10. --02:19 Yandel Mcbride R.N. Departure time: 02:17. --02:20 Yandel Mcbride R.N. Locked/Released at 11/06/2016 2:24 by Yandel Mcbride R.N.
--- NOTE | 2016-11-07 02:29 | ED MAR SUMMARY ---
..... Medication Administration Record [facility] [address] [place] [address] Patient: ARTHUR LAWRENCE Visit ID: [id number] 26y, F Weight: 57.6 kg Height/Length: 62 in BMI: 23.2 ALLERGIES: Percocet, Vicodin, Wellbutrin Start 00:38 11/06/2016 Talha Kruger RNerisNNeris, Stop 02:06 11/06/2016 Yandel Mcbride R.N. Medication Administered: IV NS (SALINE), Dose: IV Fluids over 1 hour(s), Rate: 1000 mL/hr, Dispensed: 1000 mL bag, Site: #1 left AC. Medication Ordered: IV NS : initial bolus 1000 mL (1000 mL/hr), then 1000 mL/hr for X1 (NOW). Given 00:40 11/06/2016 Talha Kruger RNerisN. Medication Administered: ZOFRAN [IVP] (ONDANSETRON HCL), Dose: 4 mg IVP over 2 minute(s), Site: #1 left AC. Medication Ordered: Zofran IV 4 mg (NOW). Given 00:42 11/06/2016 Talha Kruger R.N. Medication Administered: BENADRYL [IVP] (DIPHENHYDRAMINE HCL), Dose: 25 mg IVP over 2 minute(s), Site: #1 left AC. Medication Ordered: Benadryl IV 25 mg (NOW).
--- NOTE | 2016-11-07 02:29 | ED MAR SUMMARY ---
..... Medication Administration Record [facility] [address] [place] [address] Patient: ARTHUR LAWRENCE Visit ID: [id number] 26y, F Weight: 57.6 kg Height/Length: 62 in BMI: 23.2 ALLERGIES: Percocet, Vicodin, Wellbutrin Start 00:38 11/06/2016 Talha Kruger RNerisNNeris, Stop 02:06 11/06/2016 Yandel Mcbride R.N. Medication Administered: IV NS (SALINE), Dose: IV Fluids over 1 hour(s), Rate: 1000 mL/hr, Dispensed: 1000 mL bag, Site: #1 left AC. Medication Ordered: IV NS : initial bolus 1000 mL (1000 mL/hr), then 1000 mL/hr for X1 (NOW). Given 00:40 11/06/2016 Talha Kruger RNerisN. Medication Administered: ZOFRAN [IVP] (ONDANSETRON HCL), Dose: 4 mg IVP over 2 minute(s), Site: #1 left AC. Medication Ordered: Zofran IV 4 mg (NOW). Given 00:42 11/06/2016 Talha Kruger R.N. Medication Administered: BENADRYL [IVP] (DIPHENHYDRAMINE HCL), Dose: 25 mg IVP over 2 minute(s), Site: #1 left AC. Medication Ordered: Benadryl IV 25 mg (NOW).
--- NOTE | 2016-11-07 02:29 | ED MED RECONCILIATION SUMMARY ---
Patient: ARTHUR LAWRENCE Medication Reconciliation Report [facility] VisitID: [id number] [address] [place] [address] 26y, F Registration Date/Time: 11/05/2016 Weight: 57.6 kg Height/Length: 62 in. BMI: 23.2 ALLERGIES: Percocet, Vicodin, Wellbutrin The patient's Home Medications are listed below: CONTINUE TAKING THE FOLLOWING MEDICATIONS: Zofran Oral 8 mg, PRN The source(s) of the original Home Medication information: patient The following Medications were given to the patient in the Emergency Department: IV NS IV Fluids bolus 0, then 1000 mL/hr, administered: 11/06/2016 12:38:00 AM Zofran [IVP] IVP 4 mg, administered: 11/06/2016 12:40:00 AM Benadryl [IVP] IVP 25 mg, administered: 11/06/2016 12:42:00 AM The following Medications were prescribed to the patient: Take acetaminophen (Tylenol, Datril, etc.) according to label instructions. Available over the counter. -- Teddy Hernandez DO Zofran (orally disintegrating tablets) 4 mg: take 1-2 orally every 8 hours as needed for nausea and vomiting. Dispense ten (10). No refill. Substitution is permissible. -- Teddy Hernandez DO
--- NOTE | 2016-11-07 02:29 | ED DISCHARGE INSTRUCTIONS ---
Patient: ARTHUR LAWRENCE General Instructions [facility] VisitID: [id number] [place]assi [place] [id number] 26y, F Registration Date/Time: 11/05/2016 Abnormal liver function test: total bilirubin. Mild hyperemesis gravidarum less than 21 weeks with ketones. No volume depletion, dehydration or electrolyte imbalance. INSTRUCTIONS Rest. Do not work for three days. Drink plenty of fluids. Avoid alcohol and NSAIDS. Examples of NSAIDS include aspirin, ibuprofen (Advil) and naproxen (Aleve). Avoid fatty, fried/greasy, lactose-containing (such as milk, cheese and ice cream), salty and spicy foods. Warnings: Further evaluation is necessary in order to recheck abnormal lab, obtain test results, conduct further tests and assess the possibility of serious illness. It is very important to follow up with a physician. SEDATIVE MEDICATION: You were given sedative medication during your visit. Do not drive or operate dangerous machinery. GENERAL WARNINGS: Return or contact your physician immediately if your condition worsens or changes unexpectedly, if not improving as expected, or if other problems arise. Your Current Medications: CONTINUE TAKING THE FOLLOWING MEDICATIONS: Zofran Oral : 8 mg PRN. Prescription Medications: Zofran (orally disintegrating tablets) 4 mg: take 1-2 orally every 8 hours as needed for nausea and vomiting. Dispense ten (10). No refill. Substitution is permissible. OTC Medications: Take acetaminophen (Tylenol, Datril, etc.) according to label instructions. Available over the counter. Follow-up with: Rodney West MD, Obstetrics/Gynecology, , [facility], [address] [place] [address], [facility] Follow up tomorrow. ADDITIONAL INFORMATION Hyperemesis Of Hyperemesis of is a severe form of "morning sickness", where the vomiting is excessive and may cause dehydration and chemical imbalances in the body. It occurs in about 1% of pregnancies, and is usually worse during the 10-12th week of . It gets better by the 16th week. Its cause is not well understood, but may be related to rising hormone levels early in the . It can be a serious threat to mother and fetus if dehydration becomes severe. Therefore, follow the advice below carefully. If symptoms are severe and not controlled by home measures, intravenous fluids and admission to the hospital may be needed. Home Care: 1) Activity a. After awakening from sleep, remain in bed for 15 minutes before getting up. 2) Diet a. Eat frequent small meals rather than 3 large meals. b. A diet high in carbohydrates (starches) and fiber is best. Avoid greasy or spicy foods. c. If you are having trouble keeping down solid foods, drink frequent, small amounts of liquids with electrolytes, such as broth or sports drinks. If nausea and vomiting continue, rest your stomach by waiting 1-2 hours before trying to drink again. d. Keep a log of the foods you eat and how they affect your symptoms. Avoid foods that trigger your symptoms. e. Keep Saltine crackers at the bedside. If you are nauseated upon awakening, eat some crackers or dry toast before getting out of bed. 3) Medicine a. In general, it is best to avoid strong medicines during , especially during the first three months. The effect on the growing baby is not always known and these could cause harm. Your doctor will recommend a prescription medicine only when the symptoms you are having (vomiting and dehydration) are more dangerous to the baby than the small risk of using the medicine. b. Taking Vitamin B6 (pyridoxine), 10-25 mg daily is safe and may be helpful to reduce nausea. c. Check with your doctor before taking any other crdr-bqq-bmuuatn or herbal medicines during your . Follow Up: With your doctor within the next few days or as instructed by this facility. Get Prompt Medical Attention if any of the following occur: -- Unable to keep any clear liquids down over a six-hour period -- Worsening weakness, dizziness or fainting occurs -- No weight gain over a two-week period -- Severe constant lower right abdominal pain -- Fever, chills or frequent diarrhea [place] Diet A bland diet is used for patients with an upset stomach. It consists of foods that are mild and easy to digest. It is better to eat small frequent meals rather than three large meals a day. BEVERAGES OK: Fruit juices, non-caffeinated teas and coffee, non-carbonated lackey AVOID: Carbonated beverage, caffeinated tea and coffee, all alcoholic beverages BREAD OK: Refined white, wheat or rye bread, gray or soda crackers, Anita toast, plain rolls, bagels AVOID: Whole-grain bread CEREAL OK: Refined cereals: cooked or ready to eat AVOID: Whole grain cereals and granola, or those containing bran, seeds or nuts DESSERTS OK: Peanut butter and all others except those to "avoid" AVOID: Chocolate, cocoa, coconut, popcorn, nuts, seeds, jam, marmalade FRUITS OK: Canned, cooked, frozen or fresh fruits without seeds or tough skin AVOID: Olives, skin and seeds of fruit MEATS OK: All fresh or preserved meat, fish and fowl AVOID: Any that are prepared with those spices to "avoid" CHEESE & EGGS OK: Eggs, cottage cheese, cream cheese, other cheeses AVOID: All cheeses made with those spices to "avoid" POTATOES & PASTA OK: Potato, rice, macaroni, noodles, spaghetti AVOID: None SOUPS OK: All soups without heavy seasoning AVOID: Soups made with those spices to "avoid" VEGETABLES OK: Canned, cooked, fresh or frozen mildly flavored vegetables without seeds, skins or coarse fiber AVOID: Vegetables prepared with those spices to "avoid"; skin and seeds of vegetables and those with coarse fiber SPICES OK: Salt, lemon and [place] juice, vinegar, all extracts, leona, cinnamon, thyme, mace, allspice, paprika AVOID: [place] powder, cloves, pepper, seed spices, garlic, gravy pickles, highly seasoned salad dressings Ondansetron Oral disintegrating tablet What is this medicine? ONDANSETRON (on CHLOE se mavis) is used to treat nausea and vomiting caused by chemotherapy. It is also used to prevent or treat nausea and vomiting after surgery. How should I use this medicine? These tablets are made to dissolve in the mouth. Do not try to push the tablet through the foil backing. With dry hands, peel away the foil backing and gently remove the tablet. Place the tablet in the mouth and allow it to dissolve, then swallow. While you may take these tablets with water, it is not necessary to do so. Talk to your regional sales representative regarding the use of this medicine in children. Special care may be needed. What side effects may I notice from receiving this medicine? Side effects that you should report to your doctor or health wound care physician as soon as possible: allergic reactions like skin rash, itching or hives, swelling of the face, lips, or tongue breathing problems dizziness fast or irregular heartbeat feeling faint or lightheaded, falls fever and chills swelling of the hands and feet tightness in the chest Side effects that usually do not require medical attention (report to your doctor or health wound care physician if they continue or are bothersome): constipation or diarrhea headache What may interact with this medicine? Do not take this medicine with any of the following medications: -apomorphine -cisapride -dofetilide -dronedarone -pimozide -thioridazine -ziprasidone This medicine may also interact with the following medications: -carbamazepine -phenytoin -rifampicin -tramadol -other medicines that prolong the QT interval (cause an abnormal heart rhythm) What if I miss a dose? If you miss a dose, take it as soon as you can. If it is almost time for your next dose, take only that dose. Do not take double or extra doses. Where should I keep my medicine? Keep out of the reach of children. Store between 2 and 30 degrees C (36 and 86 degrees F). Throw away any unused medicine after the expiration date. What should I tell my health care provider before I take this medicine? They need to know if you have any of these conditions: heart disease history of irregular heartbeat liver disease low levels of magnesium or potassium in the blood an unusual or allergic reaction to ondansetron, granisetron, other medicines, foods, dyes, or preservatives or trying to get breast-feeding What should I watch for while using this medicine? Check with your doctor or health wound care physician as soon as you can if you have any sign of an allergic reaction. You have been given the following additional information: Hyperemesis Gravidarum Elizabeth Mojica (Adult) Ondansetron Oral disintegrating tablet Rest. Do not work for three days. (Electronically signed by Teddy Hernandez DO 11/06/2016 2:25)
--- NOTE | 2016-11-07 02:29 | ED DISCHARGE INSTRUCTIONS ---
Patient: ARTHUR LAWRENCE General Instructions [facility] VisitID: [id number] [place]assi Lopez[place] [phone] 26y, F Registration Date/Time: 11/05/2016 Abnormal liver function test: total bilirubin. Mild hyperemesis gravidarum less than 21 weeks with ketones. No volume depletion, dehydration or electrolyte imbalance. INSTRUCTIONS Rest. Do not work for three days. Drink plenty of fluids. Avoid alcohol and NSAIDS. Examples of NSAIDS include aspirin, ibuprofen (Advil) and naproxen (Aleve). Avoid fatty, fried/greasy, lactose-containing (such as milk, cheese and ice cream), salty and spicy foods. Warnings: Further evaluation is necessary in order to recheck abnormal lab, obtain test results, conduct further tests and assess the possibility of serious illness. It is very important to follow up with a physician. SEDATIVE MEDICATION: You were given sedative medication during your visit. Do not drive or operate dangerous machinery. GENERAL WARNINGS: Return or contact your physician immediately if your condition worsens or changes unexpectedly, if not improving as expected, or if other problems arise. Your Current Medications: CONTINUE TAKING THE FOLLOWING MEDICATIONS: Zofran Oral : 8 mg PRN. Prescription Medications: Zofran (orally disintegrating tablets) 4 mg: take 1-2 orally every 8 hours as needed for nausea and vomiting. Dispense ten (10). No refill. Substitution is permissible. OTC Medications: Take acetaminophen (Tylenol, Datril, etc.) according to label instructions. Available over the counter. Follow-up with: Rodney West MD, Obstetrics/Gynecology, , [facility], [address] [place] [address], [facility] Follow up tomorrow. ADDITIONAL INFORMATION Hyperemesis Of Hyperemesis of is a severe form of "morning sickness", where the vomiting is excessive and may cause dehydration and chemical imbalances in the body. It occurs in about 1% of pregnancies, and is usually worse during the 10-12th week of . It gets better by the 16th week. Its cause is not well understood, but may be related to rising hormone levels early in the . It can be a serious threat to mother and fetus if dehydration becomes severe. Therefore, follow the advice below carefully. If symptoms are severe and not controlled by home measures, intravenous fluids and admission to the hospital may be needed. Home Care: 1) Activity a. After awakening from sleep, remain in bed for 15 minutes before getting up. 2) Diet a. Eat frequent small meals rather than 3 large meals. b. A diet high in carbohydrates (starches) and fiber is best. Avoid greasy or spicy foods. c. If you are having trouble keeping down solid foods, drink frequent, small amounts of liquids with electrolytes, such as broth or sports drinks. If nausea and vomiting continue, rest your stomach by waiting 1-2 hours before trying to drink again. d. Keep a log of the foods you eat and how they affect your symptoms. Avoid foods that trigger your symptoms. e. Keep Saltine crackers at the bedside. If you are nauseated upon awakening, eat some crackers or dry toast before getting out of bed. 3) Medicine a. In general, it is best to avoid strong medicines during , especially during the first three months. The effect on the growing baby is not always known and these could cause harm. Your doctor will recommend a prescription medicine only when the symptoms you are having (vomiting and dehydration) are more dangerous to the baby than the small risk of using the medicine. b. Taking Vitamin B6 (pyridoxine), 10-25 mg daily is safe and may be helpful to reduce nausea. c. Check with your doctor before taking any other nqfo-uew-rrvkntl or herbal medicines during your . Follow Up: With your doctor within the next few days or as instructed by this facility. Get Prompt Medical Attention if any of the following occur: -- Unable to keep any clear liquids down over a six-hour period -- Worsening weakness, dizziness or fainting occurs -- No weight gain over a two-week period -- Severe constant lower right abdominal pain -- Fever, chills or frequent diarrhea [place] Diet A bland diet is used for patients with an upset stomach. It consists of foods that are mild and easy to digest. It is better to eat small frequent meals rather than three large meals a day. BEVERAGES OK: Fruit juices, non-caffeinated teas and coffee, non-carbonated lackey AVOID: Carbonated beverage, caffeinated tea and coffee, all alcoholic beverages BREAD OK: Refined white, wheat or rye bread, gray or soda crackers, Anita toast, plain rolls, bagels AVOID: Whole-grain bread CEREAL OK: Refined cereals: cooked or ready to eat AVOID: Whole grain cereals and granola, or those containing bran, seeds or nuts DESSERTS OK: Peanut butter and all others except those to "avoid" AVOID: Chocolate, cocoa, coconut, popcorn, nuts, seeds, jam, marmalade FRUITS OK: Canned, cooked, frozen or fresh fruits without seeds or tough skin AVOID: Olives, skin and seeds of fruit MEATS OK: All fresh or preserved meat, fish and fowl AVOID: Any that are prepared with those spices to "avoid" CHEESE & EGGS OK: Eggs, cottage cheese, cream cheese, other cheeses AVOID: All cheeses made with those spices to "avoid" POTATOES & PASTA OK: Potato, rice, macaroni, noodles, spaghetti AVOID: None SOUPS OK: All soups without heavy seasoning AVOID: Soups made with those spices to "avoid" VEGETABLES OK: Canned, cooked, fresh or frozen mildly flavored vegetables without seeds, skins or coarse fiber AVOID: Vegetables prepared with those spices to "avoid"; skin and seeds of vegetables and those with coarse fiber SPICES OK: Salt, lemon and [place] juice, vinegar, all extracts, leona, cinnamon, thyme, mace, allspice, paprika AVOID: [place] powder, cloves, pepper, seed spices, garlic, gravy pickles, highly seasoned salad dressings Ondansetron Oral disintegrating tablet What is this medicine? ONDANSETRON (on CHLOE se mavis) is used to treat nausea and vomiting caused by chemotherapy. It is also used to prevent or treat nausea and vomiting after surgery. How should I use this medicine? These tablets are made to dissolve in the mouth. Do not try to push the tablet through the foil backing. With dry hands, peel away the foil backing and gently remove the tablet. Place the tablet in the mouth and allow it to dissolve, then swallow. While you may take these tablets with water, it is not necessary to do so. Talk to your public policy associate regarding the use of this medicine in children. Special care may be needed. What side effects may I notice from receiving this medicine? Side effects that you should report to your doctor or health infant childcare provider as soon as possible: allergic reactions like skin rash, itching or hives, swelling of the face, lips, or tongue breathing problems dizziness fast or irregular heartbeat feeling faint or lightheaded, falls fever and chills swelling of the hands and feet tightness in the chest Side effects that usually do not require medical attention (report to your doctor or health infant childcare provider if they continue or are bothersome): constipation or diarrhea headache What may interact with this medicine? Do not take this medicine with any of the following medications: -apomorphine -cisapride -dofetilide -dronedarone -pimozide -thioridazine -ziprasidone This medicine may also interact with the following medications: -carbamazepine -phenytoin -rifampicin -tramadol -other medicines that prolong the QT interval (cause an abnormal heart rhythm) What if I miss a dose? If you miss a dose, take it as soon as you can. If it is almost time for your next dose, take only that dose. Do not take double or extra doses. Where should I keep my medicine? Keep out of the reach of children. Store between 2 and 30 degrees C (36 and 86 degrees F). Throw away any unused medicine after the expiration date. What should I tell my health care provider before I take this medicine? They need to know if you have any of these conditions: heart disease history of irregular heartbeat liver disease low levels of magnesium or potassium in the blood an unusual or allergic reaction to ondansetron, granisetron, other medicines, foods, dyes, or preservatives or trying to get breast-feeding What should I watch for while using this medicine? Check with your doctor or health infant childcare provider as soon as you can if you have any sign of an allergic reaction. You have been given the following additional information: Hyperemesis Gravidarum Elizabeth Mojica (Adult) Ondansetron Oral disintegrating tablet Rest. Do not work for three days. (Electronically signed by Teddy Hernandez DO 11/06/2016 2:25)
--- NOTE | 2016-11-07 02:29 | ED MED RECONCILIATION SUMMARY ---
Patient: ARTHUR LAWRENCE Medication Reconciliation Report [facility] VisitID: [id number] [address] [place] [address] 26y, F Registration Date/Time: 11/05/2016 Weight: 57.6 kg Height/Length: 62 in. BMI: 23.2 ALLERGIES: Percocet, Vicodin, Wellbutrin The patient's Home Medications are listed below: CONTINUE TAKING THE FOLLOWING MEDICATIONS: Zofran Oral 8 mg, PRN The source(s) of the original Home Medication information: patient The following Medications were given to the patient in the Emergency Department: IV NS IV Fluids bolus 0, then 1000 mL/hr, administered: 11/06/2016 12:38:00 AM Zofran [IVP] IVP 4 mg, administered: 11/06/2016 12:40:00 AM Benadryl [IVP] IVP 25 mg, administered: 11/06/2016 12:42:00 AM The following Medications were prescribed to the patient: Take acetaminophen (Tylenol, Datril, etc.) according to label instructions. Available over the counter. -- Teddy Hernandez DO Zofran (orally disintegrating tablets) 4 mg: take 1-2 orally every 8 hours as needed for nausea and vomiting. Dispense ten (10). No refill. Substitution is permissible. -- Teddy Hernandez DO
== END 2016-11-06 02:17 | disposition home or self-care (01) ==
LOC: ED SRH 23:45
DX: O21.0 Mild hyperemesis gravidarum (principal); R79.89 Other specified abnormal findings of blood chemistry; Z3A.21 21 weeks gestation of pregnancy; Z88.5 Allergy status to narcotic agent; Z88.8 Allergy status to other drugs, medicaments and biological substances; Z87.891 Personal history of nicotine dependence
CPT/HCPCS: 90004; 90100; 95059

== ENCOUNTER 2016-11-06 11:17 | Outpatient (CLI) | payer OTHER | END 2016-11-06 23:00 | LOC: LAB SRH 11:17 | DX: N91.2 Amenorrhea, unspecified (principal) | CPT/HCPCS: 90004; 90074; 90078; 90261; 90364; 90469; 90599; 90600; 90605; 90606; 90710; 90851; 92863; 93140; 98480; 99777 ==

== ENCOUNTER 2016-12-31 14:39 | Emergency (ER) | payer OTHER ==
--- NOTE | 2016-12-31 16:34 | ED CLINICAL REPORT ---
Clinical Report - Physicians/Mid Levels [facility] [address] [place] [address] 12/31/2016 14:41 [id number] Time Seen: 15:06 Dec 31 2016. Arrived- By private vehicle. Historian- patient. HISTORY OF PRESENT ILLNESS Chief Complaint: VOMITING. This started just prior to arrival and is still present. No recent travel. She has had nausea and vomiting. No flank pain. (G3, P0 17 weeks IUP , confirmed prior US, OB Gran, with emesis since this am, attempted to take zofran odt, however unable to keep such down, early sep lmp. patient presents with abdominal pain, nausea vomiting, Denies vaginal bleeding. Denies any loss of fluid.). REVIEW OF SYSTEMS No fever, muscle aches, difficulty with urination or dark urine. All systems otherwise negative, except as recorded above. SOCIAL HISTORY Former smoker. History of drug use: marijuana. No alcohol use. ADDITIONAL NOTES The nursing notes have been reviewed. PHYSICAL EXAM Vital Signs: 12/31/2016 15:07 BP: 111/64. HR: 72. RR: 18. O2 saturation: 99%. Temp: 98.4 F. Appearance: Alert. Patient in mild distress. (active emesis). Eyes: Eyes normal inspection. ENT: Ears normal. Nose normal. Pharynx normal. Neck: Normal inspection. CVS: Normal heart rate and rhythm. Heart sounds normal. No cardiac murmur or extra heart sounds. Respiratory: No respiratory distress. Breath sounds normal. Abdomen: Soft and nontender. No abdominal tenderness or distention. LABS, X-RAYS, AND EKG Laboratory Tests: UA-Culture if indicated: (OCHOA: 12/31/2016 16:13) ( MsgRcvd 12/31/2016 16:30) IP Test Result Flag Units (Reference) URINE COLOR YELLOW URINE APPEARANCE SL CLOUDY URINE GLUCOSE NEGATIVE (NEGATIVE) URINE BILIRUBIN NEGATIVE (NEGATIVE) URINE KETONE 3+ (NEGATIVE) URINE SPECIFIC GRAVITY 1.025 (1.010-1.030) URINE PH 6.0 (5.0-8.0) URINE PROTEIN TRACE (NEGATIVE) URINE UROBILINOGEN 0.2 EU/dL (0.2-1.0) URINE NITRITE NEGATIVE (NEGATIVE) URINE BLOOD TRACE-LYSED (NEGATIVE) URINE LEUK ESTERASE NEGATIVE (NEGATIVE) CBC w Diff: (OCHOA: 12/31/2016 15:45) ( MsgRcvd 12/31/2016 16:00) Final results Test Result Flag Units (Reference) WHITE BLOOD COUNT 9.1 K/uL (4.5-11.5) RED BLOOD COUNT 4.15 M/uL (4.00-5.20) HEMOGLOBIN 12.7 gm/dL (12.0-16.0) HEMATOCRIT 36.8 % (36.0-46.0) MEAN CELL VOLUME 89 fL (80-100) MEAN CORPUSCULAR HGB 31 pg (26-34) MEAN CORPUSCULAR HGB CONC 35 g/dL (31-37) RED CELL DISTRIBUTION WIDTH 13.7 % (11.6-14.8) PLATELET COUNT 230 K/uL (150-400) NEUTROPHIL % 84.2 H % (50-75) LYMPH % 10.9 L % (25-40) MONO % 4.7 % (3-14) EOSINOPHIL % 0 % (0-4) BASOPHIL % 0.2 % (0-2) CMP: (OCHOA: 12/31/2016 15:45) ( MsgRcvd 12/31/2016 16:07) Final results Test Result Flag Units (Reference) GLUCOSE 101 mg/dL (70-110) BUN 9 mg/dL (7-18) CREATININE 0.6 mg/dL (0.6-1.3) Estimated GFR >60 mL/min Estimated GFR- >60 mL/min Note: Persistent reduction over 3 months in eGFR<60 mL/min/1.73 m2 defines CKD. Patients with eGFR values>=60 mL/min/1.73 m2 may also have CKD if evidence ofpersistent proteinuria. Additional information may be foundat www.[email or web address].org. SODIUM 142 mmol/L (136-145) POTASSIUM 3.7 mmol/L (3.5-5.1) CHLORIDE 105 mmol/L (98-107) CARBON DIOXIDE 23 mmol/L (21-32) CALCIUM 8.5 mg/dL (8.5-10.1) TOTAL PROTEIN 7.5 g/dL (6.4-8.2) ALBUMIN 3.6 g/dL (3.3-5.0) BILIRUBIN, TOTAL 0.8 mg/dL (0.0-1.0) ALKALINE PHOSPHATASE 44 L U/L (46-116) AST (SGOT) 15 U/L (15-37) ALT (SGPT) 19 U/L (12-78) . PROGRESS AND PROCEDURES Course of Care: FHT 150 patient with improvement of symptoms, no distress, early second trimester. Patient has OB follow-up. No fevers, no concerning symptoms at this time. Abdomen is soft nontender. Patient wishes to go homeno guarding or peritoneal signs. 12/31/2016 16:40 BP: 112/68. HR: 86. RR: 18. O2 saturation: 99%. Temp: 98.4 F. Patient is stable. Symptoms better. Patient/family counseled. Disposition: Discharged. Condition: good. CLINICAL IMPRESSION Vomiting with nausea, dehydration and volume depletion. Diarrhea INSTRUCTIONS Drink plenty of fluids. Warnings: Further evaluation is necessary. Prescription Medications: Zofran (orally disintegrating tablets) 4 mg: take 1 orally every 6 hours for 2 days as needed for nausea. No refill. Substitution is permissible. Reglan 10 mg tablets: take 1 orally every 8 hours for 3 days as needed for nausea or vomiting. Dispense fifteen (15). No refills. Substitution is permissible. Follow-up: Follow up with your doctor as needed. (Electronically signed by Clair Conde P.A.-C 12/31/2016 16:56)
--- NOTE | 2016-12-31 16:34 | ED ORDER SUMMARY ---
..... Patient: ARTHUR LAWRENCE OrderSheet [facility] VisitID: [id number] [place] [address] 26y, F Registration Date/Time: 12/31/2016 ORDER SHEET Weight: 60.7 kg (stated) Allergies: Percocet, Vicodin, Wellbutrin GENERAL ORDERS: CBC w Diff Urgent (15:45 12/31/2016 EKoroleva P.A.-C) (15:45 LWhalen R.N.) (Ack 15:46 LNations ER Tech1) CMP Urgent (15:45 12/31/2016 EKoroleva P.A.-C) (15:45 LWhalen R.N.) (Ack 15:46 LNations ER Tech1) UA-Culture if indicated Urgent (15:45 12/31/2016 EKoroleva P.A.-C) (Ack 15:46 LNations ER Tech1) (16:14 LWhalen R.N.) PO Fluids (16:09 12/31/2016 EKoroleva P.A.-C) (16:14 LWhalen R.N.) MEDICATION ORDERS: IV FLUIDS: IV NS : initial bolus 1000 mL (1000 mL/hr), then 1000 mL/hr for X1 (NOW); Thomas (15:05 12/31/2016 EKoroleva P.A.-C) (15:31 LWhalen R.N.) Reglan IV 10 mg (NOW) (15:05 12/31/2016 EKoroleva P.A.-C) (15:33 LWhalen R.N.) Zofran IV 8 mg (NOW) (15:06 12/31/2016 EKoroleva P.A.-C) (15:37 LWhalen R.N.) ORDER SHEET NOTES: [Electronically signed by Clair Conde P.A.-C (16:56 12/31/2016)] [Electronically signed by Naa Membreno R.N. (19:14 12/31/2016)] [Electronically locked/signed by Naa Membreno R.N. (19:14 12/31/2016)]
--- NOTE | 2016-12-31 16:34 | ED ORDER SUMMARY ---
..... Patient: ARTHUR LAWRENCE OrderSheet [facility] VisitID: [id number] [place] [address] 26y, F Registration Date/Time: 12/31/2016 ORDER SHEET Weight: 60.7 kg (stated) Allergies: Percocet, Vicodin, Wellbutrin GENERAL ORDERS: CBC w Diff Urgent (15:45 12/31/2016 EKoroleva P.A.-C) (15:45 LWhalen R.N.) (Ack 15:46 LNations ER Tech1) CMP Urgent (15:45 12/31/2016 EKoroleva P.A.-C) (15:45 LWhalen R.N.) (Ack 15:46 LNations ER Tech1) UA-Culture if indicated Urgent (15:45 12/31/2016 EKoroleva P.A.-C) (Ack 15:46 LNations ER Tech1) (16:14 LWhalen R.N.) PO Fluids (16:09 12/31/2016 EKoroleva P.A.-C) (16:14 LWhalen R.N.) MEDICATION ORDERS: IV FLUIDS: IV NS : initial bolus 1000 mL (1000 mL/hr), then 1000 mL/hr for X1 (NOW); Thomas (15:05 12/31/2016 EKoroleva P.A.-C) (15:31 LWhalen R.N.) Reglan IV 10 mg (NOW) (15:05 12/31/2016 EKoroleva P.A.-C) (15:33 LWhalen R.N.) Zofran IV 8 mg (NOW) (15:06 12/31/2016 EKoroleva P.A.-C) (15:37 LWhalen R.N.) ORDER SHEET NOTES: [Electronically signed by Clair Conde P.A.-C (16:56 12/31/2016)] [Electronically signed by Naa Membreno R.N. (19:14 12/31/2016)] [Electronically locked/signed by Naa Membreno R.N. (19:14 12/31/2016)]
--- NOTE | 2016-12-31 16:34 | ED NURSING NOTES ---
Clinical Report - Nurses [facility] [address] [place] [address] 12/31/2016 14:41 [id number] TRI[facility] Triage time 15:Dec 31 2016. Acuity: LEVEL 3. Chief Complaint: ABDOMINAL PAIN, NAUSEA, VOMITING and DIARRHEA. ( heartrate 150). SEVEN COMA SCORE: [place] Coma Scale: 15- eyes open spontaneously (4); best verbal response- oriented x 4 (5); best motor response- obeys commands (6). --15:22 Naa Membreno R.N. 15:07 12/31/16. BP: 111/64. HR: 72. RR: 18. O2 saturation: 99%. Temp: 98.4 F. Pain level now 210. --15:22 Naa Membreno R.N. Weight: 60.7 kg stated. Height/Length: 62 inches Per Patient. BMI: 24.5. --15:15 Naa Membreno R.N. Medications Zofran Oral 8 mg, PRN. --15:12 Naa Membreno R.N. Allergies Percocet. --15:12 Naa Membreno R.N. Vicodin. Wellbutrin. (heart palputations) --15:12 Naa Membreno R.N. History Arrived by private vehicle, and accompanied by family. Primary physician (). This started yesterday. ( States doesn't feel like this is related. Has been throwing up and having severe headache along with diarrhea.). She has had nausea, vomiting, diarrhea and abdominal pain. No constipation or fever. Last oral intake by patient was dinner. 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 PAST MEDICAL HX: No history of diabetes mellitus. No history of gastroesophageal reflux disease, peptic ulcer disease or gallstones. Immunizations: up-to-date. Last normal menstrual period- Sep 04. Currently . In 2nd trimester. Has had care by back tender pulp drier. G 2. P 0. Ab 1. SOCIAL HX: Former smoker, end date 11/2016. History of drug use: marijuana. No alcohol use. No recent travel. No known contact with a sick individual. SELF HARM ASSESSMENT: A self harm assessment was performed. The patient answered "yes" to the question "Have you recently felt down, depressed, or hopeless?" and "no" to the question "Do you have thoughts of harming or killing yourself?". FALL RISK ASSESSMENT: Fall risk assessment completed. No fall risk identified. NUTRITIONAL RISK ASSESSMENT: The nutritional risk assessment revealed no deficiencies. FUNCTIONAL ASSESSMENT: Functional assessment: no impairments noted. LEARNING NEEDS ASSESSMENT: The learning needs assessment revealed no barriers. ABUSE ASSESSMENT: Abuse assessment: (yes) The patient was asked "Do you feel safe in your home?". SKIN INTEGRITY ASSESSMENT: Skin integrity risk assessment completed. No skin integrity risk identified. --15:22 Naa Membreno R.N. PROBLEMS: Abnormal Liver Function Test. Bicornuate uterus. UTI - Urinary Tract Infection. Gastritis. Dental Caries. Dental Abscess. Dental Pain. Ectopic . Threatened . OB History. . Substance Abuse. Hyperemesis Gravidarum. Anxiety Reaction. Diarrhea. Vomiting. Immunizations. Depression. --15:12 Naa Membreno R.N. ADDITIONAL SURGERIES: [place] teeth . --15:12 Naa Membreno R.N. Interventions ID band on patient. --15:22 Naa Membreno R.N. NURSING PROGRESS NOTES 15:12/31/2016 Site #1 started via IV in the left wrist with an 20g angiocath, with aseptic technique and good blood return; one attempt. Blood drawn: rainbow set. Labeled in the presence of the patient and sent to the lab. Saline lock flushed with 10 mL saline. --15:31 Naa Membreno R.N. 15:12/31/2016 Started bag #1 1000 mL IV Fluids IV NS (Saline); at 1000 mL/hr over 1 hour(s) via site #1 via dial-a-flow. Allergies verified and confirmed 5 rights. IV patency established. IV site checked: no pain, redness, or swelling. IV flushed thoroughly pre- and post-medication administration. --15:31 Naa Membreno R.N. 15:33 12/31/2016 Reglan (Metoclopramide HCl) IVP 10 mg given over 2 minute(s) via site #1. Allergies verified and confirmed 5 rights. IV patency established. IV site checked: no pain, redness, or swelling. IV flushed thoroughly pre- and post-medication administration. --15:33 Naa Membreno R.N. 15:37 12/31/2016 Zofran (Ondansetron HCl) IVP 8 mg given over 2 minute(s) via site #1. Allergies verified and confirmed 5 rights. IV patency established. IV site checked: no pain, redness, or swelling. IV flushed thoroughly pre- and post-medication administration. --15:37 Naa Membreno R.N. 16:06 12/31/2016 IV Fluids IV NS Discontinued: bag #1 infused. Total amount infused: 1000 mL. IV patency established. IV site checked: no pain, redness, or swelling. IV flushed thoroughly. --16:06 Naa Membreno R.N. ( Patient states feels weird and wants to go home. Offered her second liter of fluid patient refused. Offered water and or juice patient refused. Gave patient ice chips.). --16:16 Naa Membreno R.N. DISPOSITION / DISCHARGE 16:40 12/31/2016 Site #1 removed upon discharge. Catheter intact. Pressure dressing applied. --16:40 Naa Membreno R.N. Departure time: 16:41 Dec 31 2016. Condition at departure: improved. No learning barriers present. Discharge instructions provided and reviewed with the patient and spouse. Reviewed warnings. Reviewed medication(s). Treatments reviewed. Reviewed referrals. Patient verbalized understanding. Written instructions provided in Bulgarian. The patient was discharged home and accompanied by spouse. She left the Emergency Department ambulatory and via private vehicle. Spouse driving. --16:41 Naa Membreno R.N. 16:40 12/31/16. BP: 112/68. HR: 86. RR: 18. O2 saturation: 99%. Temp: 98.4 F. Pain level now 0/10. --16:41 Temi, Naa, R.N. Locked/Released at 12/31/2016 19:14 by Naa Membreno R.N.
--- NOTE | 2016-12-31 16:34 | ED NURSING NOTES ---
Clinical Report - Nurses [facility] [address] [place] [address] 12/31/2016 14:41 [id number] TRIAGE Triage time 15:Dec 31 2016. Acuity: LEVEL 3. Chief Complaint: ABDOMINAL PAIN, NAUSEA, VOMITING and DIARRHEA. ( heartrate 150). SEVEN COMA SCORE: [place] Coma Scale: 15- eyes open spontaneously (4); best verbal response- oriented x 4 (5); best motor response- obeys commands (6). --15:22 Naa Membreno R.N. 15:07 12/31/16. BP: 111/64. HR: 72. RR: 18. O2 saturation: 99%. Temp: 98.4 F. Pain level now 210. --15:22 Naa Membreno R.N. Weight: 60.7 kg stated. Height/Length: 62 inches Per Patient. BMI: 24.5. --15:15 Naa Membreno R.N. Medications Zofran Oral 8 mg, PRN. --15:12 Naa Membreno R.N. Allergies Percocet. --15:12 Naa Membreno R.N. Vicodin. Wellbutrin. (heart palputations) --15:12 Naa Membreno R.N. History Arrived by private vehicle, and accompanied by family. Primary physician (). This started yesterday. ( States doesn't feel like this is related. Has been throwing up and having severe headache along with diarrhea.). She has had nausea, vomiting, diarrhea and abdominal pain. No constipation or fever. Last oral intake by patient was dinner. 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 PAST MEDICAL HX: No history of diabetes mellitus. No history of gastroesophageal reflux disease, peptic ulcer disease or gallstones. Immunizations: up-to-date. Last normal menstrual period- Sep 04. Currently . In 2nd trimester. 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 G 2. P 0. Ab 1. SOCIAL HX: Former smoker, end date 11/2016. History of drug use: marijuana. No alcohol use. No recent travel. No known contact with a sick individual. SELF HARM ASSESSMENT: A self harm assessment was performed. The patient answered "yes" to the question "Have you recently felt down, depressed, or hopeless?" and "no" to the question "Do you have thoughts of harming or killing yourself?". FALL RISK ASSESSMENT: Fall risk assessment completed. No fall risk identified. NUTRITIONAL RISK ASSESSMENT: The nutritional risk assessment revealed no deficiencies. FUNCTIONAL ASSESSMENT: Functional assessment: no impairments noted. LEARNING NEEDS ASSESSMENT: The learning needs assessment revealed no barriers. ABUSE ASSESSMENT: Abuse assessment: (yes) The patient was asked "Do you feel safe in your home?". SKIN INTEGRITY ASSESSMENT: Skin integrity risk assessment completed. No skin integrity risk identified. --15:22 Naa Membreno R.N. PROBLEMS: Abnormal Liver Function Test. Bicornuate uterus. UTI - Urinary Tract Infection. Gastritis. Dental Caries. Dental Abscess. Dental Pain. Ectopic . Threatened . OB History. . Substance Abuse. Hyperemesis Gravidarum. Anxiety Reaction. Diarrhea. Vomiting. Immunizations. Depression. --15:12 Naa Membreno R.N. ADDITIONAL SURGERIES: [place] teeth . --15:12 Naa Membreno R.N. Interventions ID band on patient. --15:22 Naa Membreno R.N. NURSING PROGRESS NOTES 15:12/31/2016 Site #1 started via IV in the left wrist with an 20g angiocath, with aseptic technique and good blood return; one attempt. Blood drawn: rainbow set. Labeled in the presence of the patient and sent to the lab. Saline lock flushed with 10 mL saline. --15:31 Naa Membreno R.N. 15:12/31/2016 Started bag #1 1000 mL IV Fluids IV NS (Saline); at 1000 mL/hr over 1 hour(s) via site #1 via dial-a-flow. Allergies verified and confirmed 5 rights. IV patency established. IV site checked: no pain, redness, or swelling. IV flushed thoroughly pre- and post-medication administration. --15:31 Naa Membreno R.N. 15:33 12/31/2016 Reglan (Metoclopramide HCl) IVP 10 mg given over 2 minute(s) via site #1. Allergies verified and confirmed 5 rights. IV patency established. IV site checked: no pain, redness, or swelling. IV flushed thoroughly pre- and post-medication administration. --15:33 Naa Membreno R.N. 15:37 12/31/2016 Zofran (Ondansetron HCl) IVP 8 mg given over 2 minute(s) via site #1. Allergies verified and confirmed 5 rights. IV patency established. IV site checked: no pain, redness, or swelling. IV flushed thoroughly pre- and post-medication administration. --15:37 Naa Membreno R.N. 16:06 12/31/2016 IV Fluids IV NS Discontinued: bag #1 infused. Total amount infused: 1000 mL. IV patency established. IV site checked: no pain, redness, or swelling. IV flushed thoroughly. --16:06 Naa Membreno R.N. ( Patient states feels weird and wants to go home. Offered her second liter of fluid patient refused. Offered water and or juice patient refused. Gave patient ice chips.). --16:16 Naa Membreno R.N. DISPOSITION / DISCHARGE 16:40 12/31/2016 Site #1 removed upon discharge. Catheter intact. Pressure dressing applied. --16:40 Naa Membreno R.N. Departure time: 16:41 Dec 31 2016. Condition at departure: improved. No learning barriers present. Discharge instructions provided and reviewed with the patient and spouse. Reviewed warnings. Reviewed medication(s). Treatments reviewed. Reviewed referrals. Patient verbalized understanding. Written instructions provided in Macedonian. The patient was discharged home and accompanied by spouse. She left the Emergency Department ambulatory and via private vehicle. Spouse driving. --16:41 Naa Membreno R.N. 16:40 12/31/16. BP: 112/68. HR: 86. RR: 18. O2 saturation: 99%. Temp: 98.4 F. Pain level now 0/10. --16:41 Temi, Naa, R.N. Locked/Released at 12/31/2016 19:14 by Naa Membreno R.N.
--- NOTE | 2016-12-31 19:14 | ED MED RECONCILIATION SUMMARY ---
Patient: ARTHUR LAWRENCE Medication Reconciliation Report [facility] VisitID: [id number] [address] [place] [address] 26y, F Registration Date/Time: 12/31/2016 Weight: 60.7 kg Height/Length: 62 in. BMI: 24.5 ALLERGIES: Percocet, Vicodin, Wellbutrin The patient's Home Medications are listed below: THE FOLLOWING MEDICATIONS NEED TO BE RECONCILED: Zofran Oral 8 mg, PRN The source(s) of the original Home Medication information: Not obtained. The following Medications were given to the patient in the Emergency Department: IV NS IV Fluids bolus 0, then 1000 mL/hr, administered: 12/31/2016 3:31:00 PM Reglan [IVP] IVP 10 mg, administered: 12/31/2016 3:33:00 PM Zofran [IVP] IVP 8 mg, administered: 12/31/2016 3:37:00 PM The following Medications were prescribed to the patient: Zofran (orally disintegrating tablets) 4 mg: take 1 orally every 6 hours for 2 days as needed for nausea. No refill. Substitution is permissible. -- Clair Conde P.ANeris-[place] Reglan 10 mg tablets: take 1 orally every 8 hours for 3 days as needed for nausea or vomiting. Dispense fifteen (15). No refills. Substitution is permissible. -- Clair Conde, P.ANeris-C
--- NOTE | 2016-12-31 19:14 | ED MED RECONCILIATION SUMMARY ---
Patient: ARTHUR LAWRENCE Medication Reconciliation Report [facility] VisitID: [id number] [address] [place] [address] 26y, F Registration Date/Time: 12/31/2016 Weight: 60.7 kg Height/Length: 62 in. BMI: 24.5 ALLERGIES: Percocet, Vicodin, Wellbutrin The patient's Home Medications are listed below: THE FOLLOWING MEDICATIONS NEED TO BE RECONCILED: Zofran Oral 8 mg, PRN The source(s) of the original Home Medication information: Not obtained. The following Medications were given to the patient in the Emergency Department: IV NS IV Fluids bolus 0, then 1000 mL/hr, administered: 12/31/2016 3:31:00 PM Reglan [IVP] IVP 10 mg, administered: 12/31/2016 3:33:00 PM Zofran [IVP] IVP 8 mg, administered: 12/31/2016 3:37:00 PM The following Medications were prescribed to the patient: Zofran (orally disintegrating tablets) 4 mg: take 1 orally every 6 hours for 2 days as needed for nausea. No refill. Substitution is permissible. -- Clair Conde P.ANeris-[place]in[place] Reglan 10 mg tablets: take 1 orally every 8 hours for 3 days as needed for nausea or vomiting. Dispense fifteen (15). No refills. Substitution is permissible. -- Clair Conde, P.ANeris-C
--- NOTE | 2016-12-31 19:14 | ED DISCHARGE INSTRUCTIONS ---
Patient: ARTHUR LAWRENCE General Instructions [facility] VisitID: [id number] [place] [address] 26y, F Registration Date/Time: 12/31/2016 Vomiting with nausea, dehydration and volume depletion. Diarrhea INSTRUCTIONS Drink plenty of fluids. Warnings: Further evaluation is necessary. Prescription Medications: Zofran (orally disintegrating tablets) 4 mg: take 1 orally every 6 hours for 2 days as needed for nausea. No refill. Substitution is permissible. Reglan 10 mg tablets: take 1 orally every 8 hours for 3 days as needed for nausea or vomiting. Dispense fifteen (15). No refills. Substitution is permissible. Follow-up: Follow up with your doctor as needed. ADDITIONAL INFORMATION Vomiting [6Yr-Adult] Vomiting is a common symptom that may be due to different causes. These include gastroenteritis ("stomach flu"), food poisoning and gastritis. There are other more serious causes of vomiting which may be hard to diagnose early in the illness. Therefore, it is important to watch for the warning signs listed below. The main danger from repeated vomiting is dehydration. This is due to excess loss of water and minerals from the body. When this occurs, body fluids must be replaced. Home Care: If symptoms are severe, rest at home for the next 24 hours. You may use acetaminophen (Tylenol) or ibuprofen (Motrin, Advil) to control fever, unless another medicine was prescribed. [NOTE : If you have chronic liver or kidney disease or ever had a stomach ulcer or GI bleeding, talk with your doctor before using these medicines.] (Aspirin should never be used in anyone under 18 years of age who is ill with a fever. It may cause severe liver damage.) Avoid tobacco and alcohol use, which may worsen your symptoms. If medicines for vomiting were prescribed, take as directed. Once vomiting stops, then follow these guidelines: During The First 12-24 Hours follow the diet below: FRUIT JUICES: Apple, grape juice, clear fruit drinks, and electrolyte replacement drinks. BEVERAGES: Soft drinks without caffeine; mineral water (plain or flavored), decaffeinated tea and coffee. SOUPS: Clear broth, consomm and bouillon DESSERTS: Plain gelatin, popsicles and fruit juice bars. As you feel better, you may add 6-8 ounces of yogurt per day. During The Next 24 Hours you may add the following to the above: Hot cereal, plain toast, bread, rolls, crackers Plain noodles, rice, mashed potatoes, chicken noodle or rice soup Unsweetened canned fruit (avoid pineapple), bananas Limit caffeine and chocolate. No spices or seasonings except salt. During The Next 24 Hours Gradually resume a normal diet, as you feel better and your symptoms lessen. Follow Up with your doctor as advised if you are not improving over the next 2-3 days. Get Prompt Medical Attention if any of the following occur: Constant right-sided lower abdominal pain or increasing general abdominal pain Continued vomiting (unable to keep liquids down) for 24 hours Frequent diarrhea (more than 5 times a day); blood (red or black color) or mucus in diarrhea Reduced urine output or extreme thirst Weakness, dizziness or fainting Unusually drowsy or confused Fever of 100.4F (38C) oral or higher, not better with fever medication Yellow color of the eyes or skin Diarrhea, Uncertain Cause (Adult, Report Pending) Diarrhea has several possible causes. Commonstomach fluis caused by a virus. Food poisoning, bacteria or parasites are other causes for diarrhea. Only diarrhea caused by bacteria or parasites requires treatment with an antibiotic. Diarrhea from a virus or food poisoning improves with simple home treatment. A stool sample is needed to make the diagnosis of an infection with bacteria or parasites. Up to three stool specimens may be required to diagnose This may take up to two days to get the result. It may be necessary to wait until the stool test is complete to make the diagnosis and select the best antibiotic to prescribe. Home Care: If symptoms are severe, rest at home for the next 24 hours or until you are feeling better. You may use acetaminophen (Tylenol) or ibuprofen (Motrin, Advil) to control fever, unless another medicine was prescribed. [NOTE: If you have chronic liver or kidney disease or ever had a stomach ulcer or GI bleeding, talk with your doctor before using these medicines.] (Aspirin should never be used in anyone under 18 years of age who is ill with a fever. It may cause severe liver damage.) Avoid tobacco, caffeine and alcohol, which may worsen your symptoms. If anti-diarrhea medicine was prescribed, take this only as directed. Sometimes anti-diarrhea medicine can make your condition worse if the cause is an infectious diarrhea. Therefore, anti-diarrhea medicine should not be taken for this condition unless advised by your doctor. During The First 12-24 Hours follow the diet below: BEVERAGES: Sport drinks like Gatorade, soft drinks without caffeine; rachel blane, mineral water (plain or flavored), decaffeinated tea and coffee. SOUPS: Clear broth, consomm and bouillon DESSERTS: Plain gelatin (Jell-O), popsicles and fruit juice bars. During The Next 24 Hours you may add the following to the above: Hot cereal, plain toast, bread, rolls, crackers Plain noodles, rice, mashed potatoes, chicken noodle or rice soup Unsweetened canned fruit (avoid pineapple), bananas Limit fat intake to less than 15 grams per day by avoiding margarine, butter, oils, mayonnaise, sauces, gravies, fried foods, peanut butter, meat, poultry and fish. Limit fiber; avoid raw or cooked vegetables, fresh fruits (except bananas) and bran cereals. Limit caffeine and chocolate. No spices or seasonings except salt. During The Next 24 Hours Gradually resume a normal diet, as you feel better and your symptoms lessen. Follow Up with your doctor or as advised if you are not improving over the next two days. If you were asked to bring a specimen from home, bring the sample on the day of collection. You may call in 2 days (or as directed) for the results. Get Prompt Medical Attention if any of the following occur: Increasing abdominal pain or constant lower right abdominal pain Continued vomiting (unable to keep liquids down) Frequent diarrhea (more than 5 times a day) Blood in vomit or stool (black or red color) Reduced oral intake Dark urine, reduced urine output Weakness, dizziness, fainting Drowsiness, confusion, stiff neck or seizure Fever of 100.4F (38C) oral or higher, not better with fever medication New rash [place] Diet A bland diet is used for patients with an upset stomach. It consists of foods that are mild and easy to digest. It is better to eat small frequent meals rather than three large meals a day. BEVERAGES OK: Fruit juices, non-caffeinated teas and coffee, non-carbonated lackey AVOID: Carbonated beverage, caffeinated tea and coffee, all alcoholic beverages BREAD OK: Refined white, wheat or rye bread, gray or soda crackers, Anita toast, plain rolls, bagels AVOID: Whole-grain bread CEREAL OK: Refined cereals: cooked or ready to eat AVOID: Whole grain cereals and granola, or those containing bran, seeds or nuts DESSERTS OK: Peanut butter and all others except those to "avoid" AVOID: Chocolate, cocoa, coconut, popcorn, nuts, seeds, jam, marmalade FRUITS OK: Canned, cooked, frozen or fresh fruits without seeds or tough skin AVOID: Olives, skin and seeds of fruit MEATS OK: All fresh or preserved meat, fish and fowl AVOID: Any that are prepared with those spices to "avoid" CHEESE & EGGS OK: Eggs, cottage cheese, cream cheese, other cheeses AVOID: All cheeses made with those spices to "avoid" POTATOES & PASTA OK: Potato, rice, macaroni, noodles, spaghetti AVOID: None SOUPS OK: All soups without heavy seasoning AVOID: Soups made with those spices to "avoid" VEGETABLES OK: Canned, cooked, fresh or frozen mildly flavored vegetables without seeds, skins or coarse fiber AVOID: Vegetables prepared with those spices to "avoid"; skin and seeds of vegetables and those with coarse fiber SPICES OK: Salt, lemon and sault ste. marie juice, vinegar, all extracts, leona, cinnamon, thyme, mace, allspice, paprika AVOID: Pioneer powder, cloves, pepper, seed spices, garlic, gravy pickles, highly seasoned salad dressings Clear Liquid Diet Clear liquids are any liquid that you can see through as well as those that are very easy to digest. This is used while the body is recovering from irritation or infection of the stomach or intestinal tract. It may also be used before special procedures or surgery. This diet is to be used no more than three days. You may include the following items. Adults Adults should drink a total of 23 quarts of liquid per day. It may be easier to drink small frequent servings rather than a few large ones. Liquids can include: Fruit juices.Strained orange juice or lemonade (no pulp), apple, grape and cranberry juice, clear fruit drinks, sports drinks Beverages.Sport drinks, sodas, mineral water (plain or flavored), tea, black coffee, liquid gelatin (add twice the recommended amount of water) Soups.Clear broth, consomm, bouillon Desserts.Plain gelatin, popsicles, fruit juice bars Children Over 2 years old The following liquids are acceptable for children over age 2: Fruit juices.Strained orange juice or lemonade (no pulp), apple, grape and cranberry juice, clear fruit drinks Beverages. Sports drinks, sodas, mineral water (plain or flavored), tea, liquid gelatin (add twice the recommended amount of water) Soups. Clear broth, consomm, bouillon Desserts. Plain gelatin, popsicles, fruit juice bars Children under 2 years old Oral rehydration fluids such are available at drug stores and most grocery stores without a prescription. You have been given the following additional information: Vomiting (6Y-Adult) Diarrhea, Unk Cause (Adult) Report Pendg Diet, [place] (Adult) Diet, Clear Liquid (Electronically signed by Clair Conde P.A.-C 12/31/2016 16:56)
--- NOTE | 2016-12-31 19:14 | ED MAR SUMMARY ---
..... Medication Administration Record [facility] [address] [place] [address] Patient: ARTHUR LAWRENCE Visit ID: [id number] 26y, F Weight: 60.7 kg Height/Length: 62 in BMI: 24.5 ALLERGIES: Percocet, Vicodin, Wellbutrin Start 15:31 12/31/2016 Naa Membreno R.N., Stop 16:06 12/31/2016 Naa Membreno R.N. Medication Administered: IV NS (SALINE), Dose: IV Fluids over 1 hour(s), Rate: 1000 mL/hr, Dispensed: 1000 mL bag, Site: #1 left wrist. Medication Ordered: IV NS : initial bolus 1000 mL (1000 mL/hr), then 1000 mL/hr for X1 (NOW); Thomas. Given 15:33 12/31/2016 Naa Membreno R.N. Medication Administered: REGLAN [IVP] (METOCLOPRAMIDE HCL), Dose: 10 mg IVP over 2 minute(s), Site: #1 left wrist. Medication Ordered: Reglan IV 10 mg (NOW). Given 15:37 12/31/2016 Naa Membreno R.N. Medication Administered: ZOFRAN [IVP] (ONDANSETRON HCL), Dose: 8 mg IVP over 2 minute(s), Site: #1 left wrist. Medication Ordered: Zofran IV 8 mg (NOW).
--- NOTE | 2016-12-31 19:14 | ED MAR SUMMARY ---
..... Medication Administration Record [facility] [address] [place] [address] Patient: ARTHUR LAWRENCE Visit ID: [id number] 26y, F Weight: 60.7 kg Height/Length: 62 in BMI: 24.5 ALLERGIES: Percocet, Vicodin, Wellbutrin Start 15:31 12/31/2016 Naa Membreno R.N., Stop 16:06 12/31/2016 Naa Membreno R.N. Medication Administered: IV NS (SALINE), Dose: IV Fluids over 1 hour(s), Rate: 1000 mL/hr, Dispensed: 1000 mL bag, Site: #1 left wrist. Medication Ordered: IV NS : initial bolus 1000 mL (1000 mL/hr), then 1000 mL/hr for X1 (NOW); Thomas. Given 15:33 12/31/2016 Naa Membreno R.N. Medication Administered: REGLAN [IVP] (METOCLOPRAMIDE HCL), Dose: 10 mg IVP over 2 minute(s), Site: #1 left wrist. Medication Ordered: Reglan IV 10 mg (NOW). Given 15:37 12/31/2016 Naa Membreno R.N. Medication Administered: ZOFRAN [IVP] (ONDANSETRON HCL), Dose: 8 mg IVP over 2 minute(s), Site: #1 left wrist. Medication Ordered: Zofran IV 8 mg (NOW).
== END 2016-12-31 16:40 | disposition home or self-care (01) ==
LOC: ED SRH 14:39
DX: O21.9 Vomiting of pregnancy, unspecified (principal); O99.89 Other specified diseases and conditions complicating pregnancy, childbirth and the puerperium; E86.0 Dehydration; E86.9 Volume depletion, unspecified; R19.7 Diarrhea, unspecified; Z3A.17 17 weeks gestation of pregnancy; Z87.891 Personal history of nicotine dependence; Z88.5 Allergy status to narcotic agent; Z88.8 Allergy status to other drugs, medicaments and biological substances
CPT/HCPCS: 90004; 90100; 95059

== ENCOUNTER 2017-02-14 12:46 | Outpatient (CLI) | payer OTHER ==
--- NOTE | 2017-02-14 14:53 | DIAGNOSTIC IMAGING REPORT ---
PROCEDURE: US OB DETAILED ANATOMIC INDICATION: ANATOMY TECHNIQUE: Soria scale, color, and spectral Doppler images of the second trimester gravid uterus were obtained. COMPARISON: 10/09/2016 FINDINGS: A single living intrauterine is in variable presentation. There is regular cardiac activity at a rate of 143 beats per minute. The placenta is anterior and away from the internal cervical os. The amniotic fluid volume is subjectively normal. At rest with a full bladder, the maternal cervix demonstrates slight funneling in the upper portion, but appears closed distally and measures a maximal length of 3.2 cm. With Valsalva, the appearance of funneling slightly increases and the length of the cervix decreases and measures 2.5 cm. Postvoid at rest at the end of the exam, the cervix measure approximately 2.5 cm. No transvaginal imaging was performed. Biparietal diameter 5.6 cm, 23 weeks 0 days Head circumference 21.0 cm, 23 weeks 1 day Abdominal circumference 18.1 cm, 22 weeks 6 days Femur length 4.0 cm, 23 weeks 0 days Head to abdominal circumference ratio and femur length to abdominal circumference ratios are normal. Estimated weight 552 g plus/minus 83 g, 23 weeks 0 days Composite gestational age 23 weeks 0 days There was visualization of a number of normal structures including the intracranial contents, facial features, nuchal region, spine, four-chamber heart and outflow tracts to the extent that could be visualized, diaphragm, fluid-filled stomach, kidneys, abdomen, urinary bladder, upper and lower extremities, and genitals. A three-vessel umbilical cord, normal and placental cord insertion sites were seen. Due to position, the feet were not well seen. IMPRESSION: 1. Single living intrauterine with a composite gestational age of 23 weeks 0 days, 3 days behind the initially assigned gestational age. 2. Symmetric growth and normal anatomy. 3. Maternal cervix at the short end of normal with a transient appearance of cervical funneling. 4. Findings called to Dr. West.
== END 2017-02-14 23:00 | disposition home or self-care (01) ==
LOC: US SRH 12:46
DX: Z34.92 Encounter for supervision of normal pregnancy, unspecified, second trimester (principal); Z3A.23 23 weeks gestation of pregnancy

== ENCOUNTER → 2017-02-24 | Outpatient (CLI) | payer OTHER | LOC: LAB SRH 10:08 | DX: Z34.82 Encounter for supervision of other normal pregnancy, second trimester (principal) | CPT/HCPCS: 90039; 90074; 91162; 91163 ==

== ENCOUNTER → 2017-02-26 | Outpatient (CLI) | payer OTHER | LOC: LAB SRH 08:51 | DX: R73.02 Impaired glucose tolerance (oral) (principal) | CPT/HCPCS: 90074; 92652 ==

== ENCOUNTER 2017-03-23 10:55 | Outpatient (CLI) | payer OTHER | END 2017-03-23 12:35 | disposition home or self-care (01) | LOC: OBC SRH 10:55 → OB SRH 10:57 → OBC SRH 12:35 | PROC: 4A0HXCZ Measurement of Products of Conception, Cardiac Rate, External Approach (ICD-10-PCS; principal; 2017-03-23) | DX: O46.93 Antepartum hemorrhage, unspecified, third trimester (principal); Z3A.28 28 weeks gestation of pregnancy ==